=== PATIENT | female | born 1975 | race Caucasian/White ===

== ENCOUNTER 2018-02-13 00:11 | Emergency (ER) | payer OTHER ==
[2018-02-13 00:38] VITALS: BMI 30.7
--- NOTE | 2018-02-13 00:48 | PDOC ---
History of Present Illness - General Chief Complaint: Pain, Acute Stated Complaint: RIGHT LEG PAIN Time Seen by Provider: 02/13/18 00:22 - History of Present Illness Initial Comments: The patient is a 43F who presents for evaluation of 5d of worsening RLE redness , swelling, and warmth over the anterior tibia. She cannot recall any trauma, laceration, cut, abrasion, or injury to her leg prior to her symptoms. She denies having had this before. She denies recent outdoor activity or travel. She denies having any other area of similar symptoms on her body. Denies fevers/chills, recent illness, vision changes, chest pain, SOB, abdominal pain, N/V/C/D, or changes in sensation 02/13/18 01:19 Past History - Past Medical History Allergies/Adverse Reactions: Allergies Allergy/AdvReac Type Severity Reaction Status Date / Time iodine [Iodine] Allergy Verified 02/13/18 00:36 povidone-iodine Allergy Verified 02/13/18 00:36 [Povidone-Iodine] Shellfish Allergy "SKIN RASH" Verified 02/13/18 00:36 Home Medications: Ambulatory Orders Clonazepam [Klonopin] 2 mg PO BID 11/10/14 Gabapentin [Neurontin] 300 mg PO TID 11/10/14 Thyroid,Pork [[place] Thyroid] 25 mg PO DAILY 11/10/14 Venlafaxine HCl ER [Effexor Xr -] 225 mg PO DAILY 11/10/14 Cyclobenzaprine HCl [Flexeril -] 10 mg PO PRN 12/13/14 Docusate Sodium [Colace -] 100 mg PO TID 12/13/14 Morphine (Avinza) [Avinza] 30 mg PO BID 12/13/14 Omeprazole [Prilosec (RX)] 40 mg PO DAILY 12/13/14 Oxycodone HCl/Acetaminophen [Percocet 5-325 mg Tablet] 1 - 2 tab PO Q4HWA Zolpidem Tartrate [Ambien] 10 mg PO 02/08/15 Meclizine HCl 25 mg PO QID #30 tablet 02/09/15 Levothyroxine [Synthroid -] 25 mcg PO DAILY 07/18/15 Topiramate [Topamax] 50 mg PO BID 07/18/15 Amox-Tr/K Cl [Augmentin - 875Mg Tablet] 1 tab PO BID #14 tablet 01/01/16 Cariprazine HCl [Vraylar] 4.5 mg PO 02/13/18 Cephalexin Monohydrate [Keflex -] 500 mg PO Q6H 7 Days #28 capsule 02/13/18 Cyclobenzaprine HCl [Flexeril 10 mg] 10 mg PO BID PRN 02/13/18 Docusate Sodium [Colace] 100 mg PO 02/13/18 Loratadine [Alavert] 10 mg PO 02/13/18 Meloxicam 15 mg PO 02/13/18 Thyroid [[place] Thyroid] 30 mg PO DAILY 02/13/18 Topiramate [Topamax] 50 mg PO 02/13/18 Anemia: No Asthma: (HOSPITALIZED FOR BRONCHITIS/PNEUMONIA 02/13) Cancer: No Cardiac Disorders: No CVA: No COPD: No CHF: No Dementia: No Diabetes: No GI Disorders: Yes (GERD, gallstones) Disorders: No HTN: No Hypercholesterolemia: No Liver Disease: No Psychiatric Problems: Yes (anxiety) Seizures: No Thyroid Disease: No - Surgical History Abdominal Surgery: Yes (GASTRIC SLEEVE) Appendectomy: No Cardiac Surgery: No Cholecystectomy: No Lung Surgery: No Neurologic Surgery: No Orthopedic Surgery: Yes (CARPAL TUNNEL RT HAND) - Immunization History Immunization Up to Date: Yes - Suicide/Smoking/Psychosocial Hx Smoking Status: No Smoking History: Never smoked Have you smoked in the past 12 months: No Number of Cigarettes Smoked Daily: 10 If you are a former smoker, when did you quit?: 7 months Cigars Per Day: 0 Information on smoking cessation initiated: No 'Breaking Loose' booklet given: 08/13/12 Hx Alcohol Use: No Drug/Substance Use Hx: No Substance Use Type: Alcohol Hx Substance Use Treatment: No Review of Systems - Review of Systems Able to Perform ROS?: Yes Comments:: GENERAL/CONSTITUTIONAL: No fever or chills. No weakness HEAD, EYES, EARS, NOSE AND THROAT: No change in vision. No ear pain or discharge. No sore throat CARDIOVASCULAR: No chest pain or shortness of breath RESPIRATORY: Denies cough, hemoptysis GASTROINTESTINAL: No nausea, vomiting, diarrhea or constipation GENITOURINARY: No dysuria, frequency, or change in urination MUSCULOSKELETAL: No joint or muscle swelling or pain. No neck or back pain SKIN: per HPI NEUROLOGIC: No vertigo, loss of consciousness, or change in strength/sensation ENDOCRINE: No increased thirst. No abnormal weight change HEMATOLOGIC/LYMPHATIC: No anemia, easy bleeding, or history of blood clots. ALLERGIC/IMMUNOLOGIC: No hives or skin allergy 02/13/18 00:51 Is the patient limited Malay proficient: No *Physical Exam - Vital Signs Last Vital Signs Temp Pulse Resp BP Pulse Ox 98.6 F 98 H 18 120/91 100 02/13/18 00:36 12 00:36 12 00:36 12 00:36 02/13/18 00:36 - Physical Exam Comments: GENERAL: Awake, alert, and fully oriented, in no acute distress HEAD: No signs of trauma, normocephalic, atraumatic EYES: PERRLA, EOMI, sclera anicteric, conjunctiva clear ENT: Hearing grossly normal, nares patent, oropharynx clear without exudates. Moist mucosa LUNGS: No distress, speaks full sentences, clear to auscultation bilaterally HEART: Regular rate and rhythm, normal S1 and S2, no murmurs appreciated, peripheral pulses normal and equal bilaterally ABDOMEN: Soft, nontender, normoactive bowel sounds. No guarding, no rebound. No masses EXTREMITIES : RLE anterior tibial erythema, warmth, and mild swelling compared to LLE. No underlying fluctuance, no obvious abrasion or break in skin. No wound. Otherwise, normal range of motion, no edema. No clubbing or cyanosis NEUROLOGICAL: Cranial nerves II through XII grossly intact. Normal speech, normal gait, no focal sensorimotor deficits 02/13/18 00:53 Moderate Sedation - Procedure Monitoring Vital Signs: Procedure Monitoring Vital Signs Temperature 98.6 F 02/13/18 00:36 Pulse Rate 98 H 02/13/18 00:36 Respiratory Rate 18 02/13/18 00:36 Blood Pressure 120/91 02/13/18 00:36 O2 Sat by Pulse Oximetry (%) 100 02/13/18 00:36 Medical Decision Making - Medical Decision Making The patient is a 43F w/ a history of hypothyroidism and RYGB who presents for evaluation of RLE anterior tibial cellulitis for 5d ED Course Rx for Keflex for 7d Discharge instructions and return precautions given Skin marked with current area of erythema and patient instructed to take a picture of it to be able to observe for change Plan for D/C w/ PCP f/u Patient in agreement and verbalized understanding Dispo: home 02/13/18 01:29 *DC/Admit/Observation/Transfer Diagnosis at time of Disposition: Cellulitis Qualifiers: Site of cellulitis: extremity Site of cellulitis of extremity: lower extremity Laterality: right Qualified Code(s): L03.115 - Cellulitis of right lower limb - Discharge Dispostion Disposition: HOME Condition at time of disposition: Stable Decision to Admit order: No - Prescriptions Prescriptions: Cephalexin Monohydrate [Keflex -] 500 mg PO Q6H 7 Days #28 capsule - Referrals Referrals: Jean Marie Jj MD [Primary Care Provider] - - Patient Instructions Printed Discharge Instructions: DI for Cellulitis -- Adult - Post Discharge Activity
--- NOTE | 2018-02-13 00:57 | PDOC ---
Attending Attestation - HPI HPI: 02/13/18 00:57 The patient is a 43 year old with a past medical history of morbid obesity here today for evaluation of right leg redness. The patient reports that her leg redness began one week ago, is localized to the anterior of the right leg, and notes associated pain, warmth, and swelling. She reports using topical ointments which provided no relief. Patient denies headache, lightheadedness. Denies fever, chills. Denies chest pain, shortness of breath. Denies nausea, vomiting, diarrhea, abdominal pain. Allergies: iodine, povidone-iodine, shellfish PCP: Jean Marie Jj - Physicial Exam PE: 02/13/18 00:57 GENERAL: Well developed, well nourished. Awake and alert. No acute distress. HEENT: Normocephalic, atraumatic. PERRLA, EOMI. No conjunctival pallor. Sclera are non- icteric. Moist mucous membranes. Oropharynx is clear. NECK: Supple. Full ROM. No JVD. Carotid pulses 2+ and symmetric, without bruits. No thyromegaly. No lymphadenopathy. CARDIOVASCULAR: Regular rate and rhythm. No murmurs, rubs, or gallops. Distal pulses are 2+ and symmetric. PULMONARY: No evidence of respiratory distress. Lungs clear to auscultation bilaterally. No wheezing, rales or rhonchi. ABDOMINAL: Soft. Non-tender. Non-distended. No rebound or guarding. No organomegaly. Normoactive bowel sounds. MUSCULOSKELETAL Normal range of motion at all joints. No bony deformities or tenderness. No CVA tenderness. EXTREMITIES: +mild erythema anterior cardoza right leg. No fluctuance, no vesicles, no drainage. No cyanosis. No clubbing. No edema. No calf tenderness. SKIN: Warm and dry. Normal capillary refill. No rashes. No jaundice. NEUROLOGICAL: Alert, awake, appropriate. Cranial nerves 2-12 intact. No deficits to light touch and temperature in face, upper extremities and lower extremities. No motor deficits in the in face, upper extremities and lower extremities. Normoreflexic in the upper and lower extremities. Normal speech. Toes are down- going bilaterally. Gait is normal without ataxia. PSYCHIATRIC: Cooperative. Good eye contact. Appropriate mood and affect. <Levon Perez - Last Filed: 02/13/18 00:57> - Resident Resident Name: Maurisio Fung - ED Attending Attestation I have performed the following: I have examined & evaluated the patient, The case was reviewed & discussed with the resident, I agree w/resident's findings & plan, Exceptions are as noted - HPI HPI: 02/13/18 00:56 43 yo female p/w complaint of a mild area of erythema on the cardoza of her right leg. No trauma - Medical Decision Making 02/13/18 01:07 -the area of erythema on her rt anterior cardoza is very small and mild . No appreciable swelling,no induration,no streaking She is ambulating with no difficulty - possibly early cellulitis and was placed on keflex and told to follow up with her PCP <Yamile Garcia - Last Filed: 02/13/18 01:10>
[2018-02-13 01:12] VITALS: BP 115/81; PULSE 88; TEMP 98.1
== END 2018-02-13 01:33 | disposition home or self-care (01) ==
LOC: JER 00:11
DX: L03.115 Cellulitis of right lower limb (principal); E03.9 Hypothyroidism, unspecified; Z98.84 Bariatric surgery status
CPT/HCPCS: 99281-25

== ENCOUNTER 2018-11-17 20:31 | Emergency (ER) | payer OTHER ==
[2018-11-17 20:44] VITALS: BMI 42.4
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
[2018-11-17] MEDS ORDERED: TIZANIDINE HCL 2 MG TABLET PO ONE (23:16)
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
[2018-11-18 01:35] VITALS: BP 98/60; PULSE 82; TEMP 98.2
== END 2018-11-18 01:43 | disposition home or self-care (01) ==
LOC: JERFT 20:31 → JER 20:31
DX: M54.5 Low back pain (principal); V53.5XXA Driver of pick-up truck or van injured in collision with car, pick-up truck or van in traffic accident, initial encounter; Y92.414 Local residential or business street as the place of occurrence of the external cause; Y93.89 Activity, other specified; Y99.8 Other external cause status; E03.9 Hypothyroidism, unspecified; F41.9 Anxiety disorder, unspecified; F32.9 Major depressive disorder, single episode, unspecified; E66.01 Morbid (severe) obesity due to excess calories; Z68.41 Body mass index [BMI] 40.0-44.9, adult
CPT/HCPCS: 72100-TC-FY; 99282-25

== ENCOUNTER 2023-01-10 21:12 | Emergency (ER) | payer OTHER ==
[2023-01-10 21:19] VITALS: BP 118/80; PULSE 95; RESP 20; TEMP 98.1; BMI 43.2
[2023-01-10] MEDS ORDERED: ALBUTEROL SO4 2.5/IPRATROPIUM 0.5 INH SOL 3 ML VIAL.NEB. NEB ONE ×2 (21:30→21:36)
[2023-01-10] MEDS ORDERED: DEXTROMETHORPHAN/PROMETHAZINE 15 MG/6.25 MG/5 ML SYRUP PO ONE (22:26)
== END 2023-01-10 23:01 | disposition home or self-care (01) ==
LOC: JERFT 21:12
PROC: 3E0F7GC Introduction of Other Therapeutic Substance into Respiratory Tract, Via Natural or Artificial Opening (ICD-10-PCS; principal; 2023-01-10)
DX: S93.422A Sprain of deltoid ligament of left ankle, initial encounter (principal); J01.90 Acute sinusitis, unspecified; B97.89 Other viral agents as the cause of diseases classified elsewhere; R05.1 Acute cough; F17.210 Nicotine dependence, cigarettes, uncomplicated; Z20.822 Contact with and (suspected) exposure to COVID-19
CPT/HCPCS: 0241U-QW; 71046-TC-FY; 73610-TC-LT-FY; 73630-TC-LT; 94640; 99284-25

== ENCOUNTER 2023-03-16 02:59 | Emergency (ER) | payer OTHER ==
[2023-03-16 03:08] VITALS: BP 156/76; PULSE 101; RESP 20; TEMP 97.9; BMI 43.2
[2023-03-16] MEDS ORDERED: FAMOTIDINE 20 MG/50 ML IVPB 20 MG/50 ML MG IVPB ONE ×2 (03:37→03:58)
[2023-03-16] MEDS ORDERED: ACETAMINOPHEN 1000 MG/100 ML BAG IVPB ONE (03:37)
[2023-03-16] MEDS ORDERED: ACETAMINOPHEN INJECTION 100 ML IVPB ONE (03:58)
[2023-03-16 04:02] LABS: BASO % 0.6 % (0-2.0); EOS % 0.9 % (0-4.5); HEMATOCRIT 47.7 % (32.4-45.2); HEMOGLOBIN 16.1 GM/dL (10.7-15.3); LYMPH % 19.7 % (8-40); MCHC 33.7 g/dl (32.0-36.0); MEAN CELL VOLUME 89.1 fl (80-96); MEAN PLT VOLUME 8.5 fl (7.5-11.1); MONO % 12.1 % (3.8-10.2); NEUT % 66.7 % (42.8-82.8); PLATELET COUNT 299 10^3/uL (134-434); RBC 5.36 M/mm3 (3.60-5.2); WHITE BLOOD COUNT 12.1 K/mm3 (4.0-10.0)
[2023-03-16 04:03] LABS: PH,URINE 5.5 (5.0-8.0); URINE APPEARANCE CLEAR; URINE BILIRUBIN NEGATIVE (NEGATIVE); URINE COLOR YELLOW; URINE GLUCOSE (UA) NEGATIVE (NEGATIVE); URINE KETONE NEGATIVE (NEGATIVE); URINE LEUK ESTERASE NEGATIVE (NEGATIVE); URINE NITRITE NEGATIVE (NEGATIVE); URINE PROTEIN NEGATIVE (NEGATIVE); URINE UROBILINOGEN 0.2 mg/dL (0.2-1.0)
[2023-03-16 04:06] LABS: HCG,QUALITATIVE URINE Negative
[2023-03-16 04:19] LABS: INR 1.03 (0.83-1.09); PROTHROMBIN TIME (PATIENT) 11.9 SEC (9.7-13.0)
[2023-03-16 04:21] LABS: ACTIVATED PTT 35.6 SECONDS (25.2-36.5); POTASSIUM 4.2 mmol/L (3.5-5.1)
[2023-03-16 04:24] LABS: ALBUMIN 3.7 g/dl (3.4-5.0); BLOOD UREA NITROGEN 7.9 mg/dL (7-18); CALCIUM 9.5 mg/dL (8.5-10.1)
[2023-03-16 04:27] LABS: CREATININE 0.7 mg/dL (0.55-1.3)
[2023-03-16 04:29] LABS: BILIRUBIN,TOTAL 0.4 mg/dL (0.2-1); TOT PROT 7.6 g/dl (6.4-8.2)
[2023-03-16] MEDS ORDERED: morphine CARPU-JECT 4 MG/1 ML DISP.SYRIN IVPUSH ONE (05:44)
[2023-03-16] MEDS ORDERED: ONDANSETRON 4 MG/2 ML VIAL IVPUSH ONE (05:44)
[2023-03-16] MEDS ORDERED: morphine SULFATE 4 MG/ML VIAL ONE (05:54)
[2023-03-16] MEDS ORDERED: ONDANSETRON 4 MG/2 ML VIAL ONE (05:55)
[2023-03-16] MEDS ORDERED: AMOX TR/POT CLAV 875MG/125MG TABLETS (FP) ONE (07:16)
[2023-03-16] MEDS ORDERED: AMOX TR/POT CLAV 875MG/125MG TABLETS (FP) PO ONE (07:22)
== END 2023-03-16 07:08 | disposition home or self-care (01) ==
LOC: JER 02:59
PROC: 3E033GC Introduction of Other Therapeutic Substance into Peripheral Vein, Percutaneous Approach (ICD-10-PCS; principal; 2023-03-16)
PROC: 3E033GC Introduction of Other Therapeutic Substance into Peripheral Vein, Percutaneous Approach (ICD-10-PCS; 2023-03-16)
PROC: 3E033GC Introduction of Other Therapeutic Substance into Peripheral Vein, Percutaneous Approach (ICD-10-PCS; 2023-03-16)
PROC: 3E033NZ Introduction of Analgesics, Hypnotics, Sedatives into Peripheral Vein, Percutaneous Approach (ICD-10-PCS; 2023-03-16)
DX: K57.92 Diverticulitis of intestine, part unspecified, without perforation or abscess without bleeding (principal); K52.9 Noninfective gastroenteritis and colitis, unspecified; R10.32 Left lower quadrant pain; R10.814 Left lower quadrant abdominal tenderness
CPT/HCPCS: 36415; 74176-TC; 80053; 81003; 83605; 83690; 84484; 84703; 85025; 85610; 85730; 87086; 93005; 93010; 99285-25

== ENCOUNTER 2023-05-07 10:05 | Inpatient (IN) | payer OTHER ==
[2023-05-07] MEDS ORDERED: morphine SULFATE 4 MG/ML VIAL ONE (10:53)
[2023-05-07] MEDS ORDERED: ONDANSETRON 4 MG/2 ML VIAL ONE (10:58)
[2023-05-07] MEDS ORDERED: ONDANSETRON *ODT* 4 MG TABLET SL PRN (11:15)
[2023-05-07] MEDS ORDERED: clonazePAM 2 MG TABLET PO PRN (11:17)
[2023-05-07 11:19] LABS: BASO % 0.6 % (0-2.0); HEMATOCRIT 41.3 % (32.4-45.2); HEMOGLOBIN 14.1 GM/dL (10.7-15.3); LYMPH % 15.4 % (8-40); MCH 30.7 pg (25.7-33.7); MCHC 34.1 g/dl (32.0-36.0); MEAN CELL VOLUME 89.8 fl (80-96); MEAN PLT VOLUME 8.5 fl (7.5-11.1); PLATELET COUNT 275 10^3/uL (134-434); RDW 13.5 % (11.6-15.6)
[2023-05-07] MEDS: morphine CARPU-JECT 4 MG/1 ML DISP.SYRIN IVPUSH ONE (11:30)
[2023-05-07] MEDS: ONDANSETRON 4 MG/2 ML VIAL IVPUSH ONE (11:31)
[2023-05-07 11:34] LABS: POTASSIUM 4.3 mmol/L (3.5-5.1)
[2023-05-07 11:37] LABS: INR 1.03 (0.83-1.09); PROTHROMBIN TIME (PATIENT) 11.9 SEC (9.7-13.0)
[2023-05-07 11:38] LABS: CALCIUM 9.1 mg/dL (8.5-10.1)
[2023-05-07 11:39] LABS: ACTIVATED PTT 33.9 SECONDS (25.2-36.5); ALBUMIN 3.1 g/dl (3.4-5.0); BLOOD UREA NITROGEN 7.3 mg/dL (7-18)
[2023-05-07 11:42] LABS: CREATININE 0.6 mg/dL (0.55-1.3)
[2023-05-07 11:43] LABS: TOT PROT 6.7 g/dl (6.4-8.2)
[2023-05-07 11:44] LABS: BILIRUBIN,TOTAL 0.6 mg/dL (0.2-1)
[2023-05-07] MEDS ORDERED: PIPERACILLIN/TAZOB 4.5 GM 4.5 GM/100 ML BAG IVPB ONE (11:54)
[2023-05-07] MEDS: PIPERACILLIN/TAZOB 4.5 GM 4.5 GM in DEXTROSE 5%-WATER 100 ML IVPB ONE (12:06)
[2023-05-07] MEDS: DEXTROSE 5%-NORMAL SALINE 1,000 ML IV SCH (12:06)
[2023-05-07 12:25] LABS: ERYTHROCYTE SEDIMENTATION RATE 44 mm/hr (0-20)
[2023-05-07] MEDS ORDERED: ACETAMINOPHEN 325 MG TABLET (FP) ONE (12:54)
[2023-05-07] MEDS: ACETAMINOPHEN 325 MG TABLET (FP) PO PRN (13:05)
[2023-05-07] MEDS: traMADol HCL 50 MG TABLET PO PRN (16:33)
[2023-05-07 17:47] VITALS: BMI 43.4
[2023-05-07] MEDS: morphine SULFATE 4 MG/ML VIAL IM PRN (18:37)
[2023-05-07] MEDS: traZODone HCL 50 MG TABLET (FP) PO SCH (22:09)
[2023-05-07] MEDS: TOPIRAMATE 25 MG TABLET PO SCH (22:09)
[2023-05-07] MEDS: HEPARIN NA (PORCINE) 5,000 UNITS/ML 1ML VIAL SQ SCH (22:09)
[2023-05-08] MEDS: morphine SULFATE 4 MG/ML VIAL IVPB PRN (01:30)
[2023-05-08] MEDS: LEVOTHYROXINE NA 25 MCG TABLET (FP) PO SCH (06:09)
[2023-05-08 08:32] LABS: HEMATOCRIT 37.3 % (32.4-45.2); HEMOGLOBIN 13.2 GM/dL (10.7-15.3); MCH 31.4 pg (25.7-33.7); MCHC 35.4 g/dl (32.0-36.0); MEAN CELL VOLUME 88.8 fl (80-96); PLATELET COUNT 259 10^3/uL (134-434); RDW 13.3 % (11.6-15.6); WHITE BLOOD COUNT 8.9 K/mm3 (4.0-10.0)
[2023-05-08 08:38] LABS: POTASSIUM 3.9 mmol/L (3.5-5.1)
[2023-05-08 08:41] LABS: CALCIUM 8.5 mg/dL (8.5-10.1)
[2023-05-08 08:42] LABS: ALBUMIN 2.7 g/dl (3.4-5.0)
[2023-05-08 08:44] LABS: CREATININE 0.6 mg/dL (0.55-1.3)
[2023-05-08 08:46] LABS: BILIRUBIN,TOTAL 0.8 mg/dL (0.2-1); TOT PROT 6.1 g/dl (6.4-8.2)
[2023-05-08] MEDS: PANTOPRAZOLE 40 MG TABLET PO SCH (09:15)
[2023-05-08] MEDS: CEFTRIAXONE 1 GM in DEXTROSE 5%-WATER - 50 ML IVPB SCH (12:09)
[2023-05-09] MEDS: DOCUSATE SODIUM 100 MG CAPSULE (FP) PO PRN (00:58)
[2023-05-09 10:00] LABS: HEMATOCRIT 37.5 % (32.4-45.2); HEMOGLOBIN 13.1 GM/dL (10.7-15.3); MEAN CELL VOLUME 88.7 fl (80-96); MEAN PLT VOLUME 8.6 fl (7.5-11.1); PLATELET COUNT 257 10^3/uL (134-434); RBC 4.23 M/mm3 (3.60-5.2); RDW 13.4 % (11.6-15.6); WHITE BLOOD COUNT 7.6 K/mm3 (4.0-10.0)
[2023-05-09] MEDS: BISACODYL 5 MG TABLET.DR (FP) PO SCH (10:19)
[2023-05-09 10:30] LABS: POTASSIUM 3.7 mmol/L (3.5-5.1)
[2023-05-09 11:17] LABS: CREATININE 0.5 mg/dL (0.55-1.3)
[2023-05-09 11:19] LABS: BILIRUBIN,TOTAL 0.6 mg/dL (0.2-1); TOT PROT 6.1 g/dl (6.4-8.2)
[2023-05-09 11:24] LABS: CALCIUM 8.8 mg/dL (8.5-10.1)
[2023-05-09 11:25] LABS: ALBUMIN 2.6 g/dl (3.4-5.0); BLOOD UREA NITROGEN 6.7 mg/dL (7-18)
[2023-05-10 08:30] LABS: HEMATOCRIT 39.1 % (32.4-45.2); HEMOGLOBIN 13.3 GM/dL (10.7-15.3); MCH 30.4 pg (25.7-33.7); MCHC 34.1 g/dl (32.0-36.0); MEAN CELL VOLUME 89.3 fl (80-96); MEAN PLT VOLUME 9.3 fl (7.5-11.1); PLATELET COUNT 281 10^3/uL (134-434); RBC 4.38 M/mm3 (3.60-5.2); RDW 13.6 % (11.6-15.6); WHITE BLOOD COUNT 6.9 K/mm3 (4.0-10.0)
[2023-05-10 09:31] LABS: POTASSIUM 3.8 mmol/L (3.5-5.1)
[2023-05-10 09:36] LABS: ALBUMIN 2.8 g/dl (3.4-5.0); BLOOD UREA NITROGEN 7.1 mg/dL (7-18)
[2023-05-10 09:39] LABS: CREATININE 0.6 mg/dL (0.55-1.3)
[2023-05-10 09:41] LABS: BILIRUBIN,TOTAL 0.4 mg/dL (0.2-1); TOT PROT 6.3 g/dl (6.4-8.2)
[2023-05-11 02:52] VITALS: RESP 18
[2023-05-11 10:56] VITALS: BP 113/69; PULSE 68; TEMP 97.8
== END 2023-05-11 14:44 | disposition home or self-care (01) | DRG 244 ==
LOC: JER 10:05 → JERBED 11:26 → J6S 16:09 → OBSVTOIN 05-09 10:15
PROVIDERS: ADMIT Family Medicine; ATTEND Family Medicine
DX: K57.92 Diverticulitis of intestine, part unspecified, without perforation or abscess without bleeding (principal); E03.9 Hypothyroidism, unspecified; F31.9 Bipolar disorder, unspecified; M79.7 Fibromyalgia; F41.8 Other specified anxiety disorders; G89.29 Other chronic pain; Z98.84 Bariatric surgery status; E66.01 Morbid (severe) obesity due to excess calories; Z68.41 Body mass index [BMI] 40.0-44.9, adult
CPT/HCPCS: 36415; 74177-TC; 80053; 81003; 84443; 84703; 85025; 85027; 85610; 85651; 85730; 86140; 86850; 86900; 86901; 87086; 99285-25; G0378; J0131; J1644

== ENCOUNTER 2023-11-18 03:38 | Inpatient (IN) | payer OTHER ==
[2023-11-18] MEDS ORDERED: ONDANSETRON 4 MG/2 ML VIAL ONE ×2 (04:52→12:00)
[2023-11-18] MEDS ORDERED: ACETAMINOPHEN INJECTION 100 ML ONE (04:52)
[2023-11-18 05:35] LABS: HIV INTERPRETATION NEGATIVE (NEGATIVE)
[2023-11-18] MEDS: ACETAMINOPHEN 1000 MG/100 ML BAG IVPB ONE (05:42)
[2023-11-18] MEDS: ONDANSETRON 4 MG/2 ML VIAL IVPUSH ONE ×2 (05:42→11:59)
[2023-11-18 05:44] LABS: BASO % 0.3 % (0-2.0); HEMATOCRIT 41.5 % (32.4-45.2); HEMOGLOBIN 14.1 GM/dL (10.7-15.3); LYMPH % 10.6 % (8-40); MCH 31.1 pg (25.7-33.7); MCHC 33.9 g/dl (32.0-36.0); MEAN CELL VOLUME 91.7 fl (80-96); MEAN PLT VOLUME 9.6 fl (7.5-11.1); MONO % 11.9 % (3.8-10.2); NEUT % 77.2 % (42.8-82.8); PLATELET COUNT 225 10^3/uL (134-434); RBC 4.52 M/mm3 (3.60-5.2); RDW 13.8 % (11.6-15.6); WHITE BLOOD COUNT 14.7 K/mm3 (4.0-10.0)
[2023-11-18 05:46] LABS: INR 1.03 (0.83-1.09); PROTHROMBIN TIME (PATIENT) 11.6 SEC (9.7-13.0)
[2023-11-18 05:48] LABS: ACTIVATED PTT 35.2 SECONDS (25.2-36.5)
[2023-11-18 05:51] LABS: PH,URINE 5.5 (5.0-8.0); URINE APPEARANCE CLEAR; URINE BILIRUBIN NEGATIVE (NEGATIVE); URINE COLOR YELLOW; URINE GLUCOSE (UA) NEGATIVE (NEGATIVE); URINE KETONE NEGATIVE (NEGATIVE); URINE LEUK ESTERASE NEGATIVE (NEGATIVE); URINE NITRITE NEGATIVE (NEGATIVE); URINE PROTEIN NEGATIVE (NEGATIVE); URINE UROBILINOGEN 0.2 mg/dL (0.2-1.0)
[2023-11-18 06:03] LABS: POTASSIUM 3.8 mmol/L (3.5-5.1)
[2023-11-18 06:05] LABS: ALBUMIN 3.5 g/dl (3.4-5.0); CALCIUM 9.2 mg/dL (8.5-10.1)
[2023-11-18 06:08] LABS: CREATININE 0.7 mg/dL (0.55-1.3)
[2023-11-18 06:10] LABS: TOT PROT 7.2 g/dl (6.4-8.2)
[2023-11-18] MEDS ORDERED: morphine SULFATE 4 MG/ML VIAL ONE (08:18)
[2023-11-18] MEDS: morphine SULFATE 4 MG/ML VIAL IVPUSH ONE (08:39)
[2023-11-18] MEDS: LACTATED RINGERS SOLUTION 1000 ML INFUS.BAG IV ONE ×2 (10:17→12:38)
[2023-11-18] MEDS: PIPERACILLIN/TAZOB 4.5 GM 4.5 GM in DEXTROSE 5%-WATER 100 ML IVPB ONE (13:09)
[2023-11-18] MEDS ORDERED: PIPERACILLIN/TAZOB 4.5 GM 4.5 GM/100 ML BAG IVPB ONE (13:10)
[2023-11-18 15:20] VITALS: BMI 39.5
[2023-11-18] MEDS: DEXTROSE 5%-NORMAL SALINE 1,000 ML IV SCH (18:18)
[2023-11-18] MEDS: ONDANSETRON 4 MG/2 ML VIAL IVPUSH PRN (18:24)
[2023-11-18] MEDS: KETOROLAC TROMETHAMINE 30 MG/1 ML VIAL IVPUSH PRN (18:24)
[2023-11-18] MEDS: ALBUTEROL SULFATE 0.021% (0.63 MG/3 ML) VIAL.NEB NEB SCH (21:22)
[2023-11-18] MEDS: PIPERACILLIN/TAZOB 4.5 GM 4.5 GM in DEXTROSE 5%-WATER 100 ML IVPB SCH (21:39)
[2023-11-18] MEDS: traZODone HCL 100 MG TABLET (FP) PO SCH (21:39)
[2023-11-18] MEDS: ACETAMINOPHEN 1000 MG/100 ML BAG IVPB PRN (22:41)
[2023-11-19] MEDS: LEVOTHYROXINE NA 25 MCG TABLET (FP) PO SCH (07:28)
[2023-11-19 08:31] LABS: HEMATOCRIT 36.9 % (32.4-45.2); HEMOGLOBIN 12.9 GM/dL (10.7-15.3); MCH 31.5 pg (25.7-33.7); MEAN CELL VOLUME 90.1 fl (80-96); MEAN PLT VOLUME 8.8 fl (7.5-11.1); PLATELET COUNT 174 10^3/uL (134-434); RBC 4.09 M/mm3 (3.60-5.2); RDW 13.6 % (11.6-15.6); WHITE BLOOD COUNT 5.7 K/mm3 (4.0-10.0)
[2023-11-19 08:59] LABS: POTASSIUM 3.7 mmol/L (3.5-5.1)
[2023-11-19 09:02] LABS: BLOOD UREA NITROGEN 7.5 mg/dL (7-18); CALCIUM 8.5 mg/dL (8.5-10.1)
[2023-11-19 09:04] LABS: ALBUMIN 2.6 g/dl (3.4-5.0)
[2023-11-19 09:05] LABS: CREATININE 0.7 mg/dL (0.55-1.3)
[2023-11-19 09:07] LABS: BILIRUBIN,TOTAL 0.7 mg/dL (0.2-1); TOT PROT 5.7 g/dl (6.4-8.2)
[2023-11-19] MEDS: PANTOPRAZOLE SODIUM 40 MG VIAL IVPUSH SCH (09:56)
[2023-11-19] MEDS: HYDROmorphone HCL CARPU-JECT 2 MG/1 ML DISP.SYRIN IVPB STA (15:22)
[2023-11-19] MEDS: clonazePAM 2 MG TABLET PO PRN (20:44)
[2023-11-19 21:05] LABS: MAGNESIUM 1.9 mg/dL (1.8-2.4)
[2023-11-19 21:09] LABS: PHOSPHOROUS 3.4 mg/dL (2.5-4.9)
[2023-11-19] MEDS: HYDROmorphone HCL CARPU-JECT 2 MG/1 ML DISP.SYRIN IVPB ONE (21:45)
[2023-11-20] MEDS: ACETAMINOPHEN 1000 MG/100 ML BAG IVPB ONE (02:00)
[2023-11-20 08:37] LABS: HEMATOCRIT 36.9 % (32.4-45.2); HEMOGLOBIN 12.5 GM/dL (10.7-15.3); MCHC 33.8 g/dl (32.0-36.0); MEAN CELL VOLUME 91.5 fl (80-96); MEAN PLT VOLUME 9.4 fl (7.5-11.1); PLATELET COUNT 205 10^3/uL (134-434); RBC 4.03 M/mm3 (3.60-5.2); RDW 13.4 % (11.6-15.6); WHITE BLOOD COUNT 7.7 K/mm3 (4.0-10.0)
[2023-11-20 08:51] LABS: POTASSIUM 3.6 mmol/L (3.5-5.1)
[2023-11-20 08:53] LABS: CALCIUM 8.3 mg/dL (8.5-10.1)
[2023-11-20 08:54] LABS: ALBUMIN 2.4 g/dl (3.4-5.0); BLOOD UREA NITROGEN 4.5 mg/dL (7-18)
[2023-11-20 08:57] LABS: CREATININE 0.7 mg/dL (0.55-1.3)
[2023-11-20 08:58] LABS: BILIRUBIN,TOTAL 0.6 mg/dL (0.2-1); TOT PROT 5.7 g/dl (6.4-8.2)
[2023-11-20] MEDS: morphine SULFATE 4 MG/ML VIAL IVPUSH PRN (10:54)
[2023-11-20] MEDS: DEXTROSE 5%-NORMAL SALINE 1,000 ML IV SCH (14:02)
[2023-11-20] MEDS: ACETAMINOPHEN 1000 MG/100 ML BAG IVPB SCH (14:03)
[2023-11-20] MEDS: KETOROLAC TROMETHAMINE 30 MG/1 ML VIAL IVPUSH SCH (18:07)
[2023-11-21 10:21] LABS: HEMATOCRIT 33.7 % (32.4-45.2); HEMOGLOBIN 11.6 GM/dL (10.7-15.3); MCH 31.1 pg (25.7-33.7); MCHC 34.5 g/dl (32.0-36.0); MEAN CELL VOLUME 90.2 fl (80-96); MEAN PLT VOLUME 9.4 fl (7.5-11.1); PLATELET COUNT 212 10^3/uL (134-434); RBC 3.74 M/mm3 (3.60-5.2); RDW 13.7 % (11.6-15.6); WHITE BLOOD COUNT 7.1 K/mm3 (4.0-10.0)
[2023-11-21 10:41] LABS: POTASSIUM 3.3 mmol/L (3.5-5.1)
[2023-11-21 10:51] LABS: BLOOD UREA NITROGEN 4.6 mg/dL (7-18)
[2023-11-21 10:54] LABS: CREATININE 0.5 mg/dL (0.55-1.3)
[2023-11-21 10:57] LABS: CALCIUM 8.2 mg/dL (8.5-10.1)
[2023-11-21 11:49] LABS: ANISOCYTOSIS 0; MACROCYTOSIS 0; ROULEAU 1+
[2023-11-21 11:51] LABS: PLATELET ESTIMATE ADEQUATE
[2023-11-21] MEDS: HEPARIN NA (PORCINE) 5,000 UNITS/ML 1ML VIAL SQ SCH (13:47)
[2023-11-21] MEDS: KCL 10 MEQ IVPB 10 MEQ/100 ML INFUS.BAG IVPB SCH (15:31)
[2023-11-21] MEDS: ONDANSETRON 4 MG/2 ML VIAL IVPB STA (17:03)
[2023-11-21] MEDS: POTASSIUM CHLORIDE 10 MEQ in DEXTROSE 5%-NORMAL SALINE 1,000 ML IV SCH (20:03)
[2023-11-21] MEDS: ONDANSETRON 4 MG/2 ML VIAL IVPUSH ONE (21:54)
[2023-11-22 08:30] LABS: BASO % 0.4 % (0-2.0); EOS % 0.9 % (0-4.5); HEMATOCRIT 33.6 % (32.4-45.2); HEMOGLOBIN 11.4 GM/dL (10.7-15.3); LYMPH % 16.7 % (8-40); MCH 30.8 pg (25.7-33.7); MEAN CELL VOLUME 90.6 fl (80-96); MEAN PLT VOLUME 9.4 fl (7.5-11.1); MONO % 16.8 % (3.8-10.2); NEUT % 65.2 % (42.8-82.8); PLATELET COUNT 208 10^3/uL (134-434); RBC 3.71 M/mm3 (3.60-5.2); RDW 13.4 % (11.6-15.6); WHITE BLOOD COUNT 5.9 K/mm3 (4.0-10.0)
[2023-11-22 08:53] LABS: CHLORIDE 110 mmol/L (98-107); SODIUM 141 mmol/L (136-145); SODIUM 142 mmol/L (136-145)
[2023-11-22 08:54] LABS: POTASSIUM 2.9 mmol/L (3.5-5.1)
[2023-11-22 08:55] LABS: ANION GAP 7 mmol/L (4-13); BLOOD UREA NITROGEN 5.9 mg/dL (7-18); CALCIUM 8.2 mg/dL (8.5-10.1); CO2 26 mmol/L (21-32); GLUCOSE,RANDOM 86 mg/dL (74-106)
[2023-11-22 08:56] LABS: ALBUMIN 2.1 g/dl (3.4-5.0); ANION GAP 7 mmol/L (4-13); CALCIUM 7.9 mg/dL (8.5-10.1); CO2 25 mmol/L (21-32)
[2023-11-22 08:57] LABS: BLOOD UREA NITROGEN 5.8 mg/dL (7-18); GLUCOSE,RANDOM 84 mg/dL (74-106); MAGNESIUM 1.8 mg/dL (1.8-2.4)
[2023-11-22 08:59] LABS: CREATININE 0.4 mg/dL (0.55-1.3)
[2023-11-22 09:00] LABS: CREATININE 0.5 mg/dL (0.55-1.3); SGOT/AST 19 U/L (15-37); SGPT/ALT 23 U/L (13-61)
[2023-11-22 09:01] LABS: BILIRUBIN,TOTAL 0.8 mg/dL (0.2-1); TOT PROT 5.2 g/dl (6.4-8.2)
[2023-11-22 09:02] LABS: ALK PHOS 65 U/L (45-117)
[2023-11-22] MEDS: POTASSIUM CHLORIDE TABS 10 MEQ TABLET.ER (FP) PO SCH (12:56)
[2023-11-22] MEDS: ACETAMINOPHEN 325 MG TABLET (FP) PO PRN (19:15)
[2023-11-22] MEDS: ONDANSETRON 4 MG/2 ML VIAL IVPUSH ONE ×2 (22:20→22:35)
[2023-11-22] MEDS ORDERED: ONDANSETRON 4 MG/2 ML VIAL IVPUSH PRN (23:46)
[2023-11-23 07:28] LABS: BASO % 0.6 % (0-2.0); EOS % 1.2 % (0-4.5); HEMATOCRIT 34.2 % (32.4-45.2); HEMOGLOBIN 11.7 GM/dL (10.7-15.3); LYMPH % 18.9 % (8-40); MCH 30.9 pg (25.7-33.7); MCHC 34.3 g/dl (32.0-36.0); MEAN CELL VOLUME 90.2 fl (80-96); MEAN PLT VOLUME 9.3 fl (7.5-11.1); MONO % 14.2 % (3.8-10.2); NEUT % 65.1 % (42.8-82.8); PLATELET COUNT 286 10^3/uL (134-434); RBC 3.79 M/mm3 (3.60-5.2); RDW 13.8 % (11.6-15.6); WHITE BLOOD COUNT 7.5 K/mm3 (4.0-10.0)
[2023-11-23 07:40] LABS: POTASSIUM 3.4 mmol/L (3.5-5.1)
[2023-11-23 07:47] LABS: BLOOD UREA NITROGEN 6.4 mg/dL (7-18)
[2023-11-23 07:48] LABS: CALCIUM 8.8 mg/dL (8.5-10.1)
[2023-11-23 07:49] LABS: CREATININE 0.6 mg/dL (0.55-1.3)
[2023-11-23] MEDS ORDERED: METOCLOPRAMIDE HCL INJECTION 10 MG/2 ML VIAL IVPUSH PRN (10:03)
[2023-11-23] MEDS: METOCLOPRAMIDE HCL INJECTION 10 MG/2 ML VIAL IVPB SCH (11:26)
[2023-11-23] MEDS: PHENOL 177 ML SPRAY BOTTLE MM PRN (14:06)
[2023-11-23] MEDS: ONDANSETRON *ODT* 4 MG TABLET SL PRN (21:06)
[2023-11-23] MEDS: KETOROLAC TROMETHAMINE 30 MG/1 ML VIAL IVPUSH PRN (21:14)
[2023-11-23 22:12] VITALS: RESP 18
[2023-11-23] MEDS: BENZOCAINE/MENTHOL (CHLORASEPTIC ) LOZENGE MM PRN (22:14)
[2023-11-24 09:48] LABS: HEMOGLOBIN 11.4 GM/dL (10.7-15.3); MCH 30.5 pg (25.7-33.7); MCHC 33.5 g/dl (32.0-36.0); MEAN CELL VOLUME 90.9 fl (80-96); MEAN PLT VOLUME 9.4 fl (7.5-11.1); PLATELET COUNT 317 10^3/uL (134-434); RBC 3.74 M/mm3 (3.60-5.2); RDW 13.7 % (11.6-15.6); WHITE BLOOD COUNT 7.9 K/mm3 (4.0-10.0)
[2023-11-24 10:10] LABS: ALBUMIN 2.3 g/dl (3.4-5.0); BLOOD UREA NITROGEN 7.9 mg/dL (7-18); CALCIUM 8.7 mg/dL (8.5-10.1)
[2023-11-24 10:14] LABS: CREATININE 0.5 mg/dL (0.55-1.3)
[2023-11-24 10:15] LABS: BILIRUBIN,TOTAL 0.5 mg/dL (0.2-1); TOT PROT 5.6 g/dl (6.4-8.2)
[2023-11-24 10:45] VITALS: BP 129/78; PULSE 61; TEMP 98.5
== END 2023-11-24 11:43 | disposition home or self-care (01) | DRG 244 ==
LOC: JER 03:38 → JERBED 12:27 → J7W 15:11 → OBSVTOIN 17:16
PROVIDERS: ADMIT Family Medicine; ATTEND Family Medicine
DX: K57.32 Diverticulitis of large intestine without perforation or abscess without bleeding (principal); E03.9 Hypothyroidism, unspecified; F31.9 Bipolar disorder, unspecified; M79.7 Fibromyalgia; Z98.84 Bariatric surgery status; E66.9 Obesity, unspecified; Z68.39 Body mass index [BMI] 39.0-39.9, adult; K21.9 Gastro-esophageal reflux disease without esophagitis
CPT/HCPCS: 36415; 71045-TC-FY; 71046-TC-FY; 74176-TC; 74177-TC; 74240-TC-FY; 76705-TC; 80048; 80053; 81003; 83036; 83605; 83690; 83735; 84100; 84439; 84443; 84484; 84703; 85025; 85027; 85610; 85651; 85730; 86140; 86803; 86850; 86900; 86901; 87040; 87086; 87389; 93005; 93010; 94010; 94640; 99285-25; G0378; J0131; J1644; Q0162

== ENCOUNTER 2023-12-18 04:32 | Inpatient (IN) | payer OTHER ==
[2023-12-13 13:45] VITALS: BMI 37.4
[2023-12-18] MEDS: ACETAMINOPHEN 500 MG TABLET (FP) PO ONE (08:50)
[2023-12-18] MEDS: GABAPENTIN 300 MG CAPSULE PO ONE (08:54)
[2023-12-18] MEDS ORDERED: PROPOFOL 20 ML ONE ×2 (09:40→15:58)
[2023-12-18] MEDS ORDERED: MIDAZOLAM HCL 2 MG/2 ML SINGLE DOSE VIAL ONE (09:40)
[2023-12-18] MEDS ORDERED: ROCURONIUM BROMIDE 50 MG/5 ML SYRINGE ONE (09:40)
[2023-12-18] MEDS ORDERED: LIDOCAINE HCL/PF 2% SDV 5ML VIAL ONE (09:42)
[2023-12-18] MEDS: cefOXitin SODIUM 2 GM VIAL (RESTRICTED TO ID) IVPB ONE ×2 (10:43→18:07)
[2023-12-18] MEDS ORDERED: ONDANSETRON 4 MG/2 ML VIAL IVPUSH PRN ×2 (11:10→16:42)
[2023-12-18] MEDS: BUPIVACAINE HCL/PF 0.25% (2.5MG/ML) 10 ML VIAL IJ ONE (11:20)
[2023-12-18] MEDS ORDERED: BUPIVACAINE HCL/PF 0.25% (2.5MG/ML) 10 ML VIAL ONE (11:23)
[2023-12-18] MEDS ORDERED: TRANEXAMIC ACID 1000 MG/10 ML VIAL ONE (14:10)
[2023-12-18] MEDS ORDERED: ACETAMINOPHEN INJECTION 100 ML ONE (15:43)
[2023-12-18] MEDS ORDERED: oxyCODONE HCL 5 MG TABLET PO PRN ×3 (15:45→17:01)
[2023-12-18] MEDS ORDERED: DEXAMETHASONE SOD PHOSPHATE 4 MG/1 ML VIAL ONE (16:12)
[2023-12-18] MEDS ORDERED: ONDANSETRON 4 MG/2 ML VIAL ONE (16:12)
[2023-12-18] MEDS ORDERED: ALBUTEROL SO4 HFA INHALER IH ONE (16:17)
[2023-12-18] MEDS ORDERED: SUGAMMADEX SODIUM 200 MG/2 ML VIAL ONE (16:19)
[2023-12-18] MEDS ORDERED: morphine SULFATE 4 MG/ML VIAL IVPUSH PRN (16:55)
[2023-12-18] MEDS: SODIUM CHLORIDE 1,000 ML IV STA (18:26)
[2023-12-18] MEDS ORDERED: CEFOXITIN SODIUM 2 GM in DEXTROSE 5%-WATER - 100 ML IVPB SCH (18:45)
[2023-12-18] MEDS ORDERED: KETOROLAC TROMETHAMINE 30 MG/1 ML VIAL ONE (19:00)
[2023-12-18] MEDS: KETOROLAC TROMETHAMINE 15 MG/ML VIAL IVPUSH PRN (19:10)
[2023-12-18] MEDS ORDERED: HYDROmorphone HCL CARPU-JECT 2 MG/1 ML DISP.SYRIN ONE (19:26)
[2023-12-18] MEDS: HYDROmorphone HCl 2 MG/ML VIAL IVPUSH PRN (19:30)
[2023-12-18] MEDS: LACTATED RINGERS SOLUTION 1,000 ML IV SCH (19:59)
[2023-12-18] MEDS: CEFOXITIN SODIUM 2 GM in DEXTROSE 5%-WATER 100 ML IVPB SCH (21:40)
[2023-12-18] MEDS: ACETAMINOPHEN 1000 MG/100 ML BAG IVPB SCH (23:29)
[2023-12-18] MEDS: TRANEXAMIC ACID 1000 MG/10 ML VIAL IVPB SCH (23:50)
[2023-12-19] MEDS ORDERED: ALBUTEROL SO4 HFA INHALER IH PRN (01:11)
[2023-12-19] MEDS: ONDANSETRON 4 MG/2 ML VIAL IM PRN (06:36)
[2023-12-19] MEDS ORDERED: HYDROmorphone HCl 2 MG/ML VIAL IVPB PRN (07:53)
[2023-12-19] MEDS: SCOPOLAMINE HYDROBROMIDE 1 PATCH PATCH.TD72 TD ONE (07:56)
[2023-12-19] MEDS: LACTATED RINGERS SOLUTION 1,000 ML IV SCH ×2 (07:58)
[2023-12-19] MEDS ORDERED: oxyCODONE HCL 5 MG TABLET PO PRN (08:13)
[2023-12-19] MEDS: LACTATED RINGERS SOLUTION 1,000 ML/1,000 ML INFUS.BAG IV SCH (08:30)
[2023-12-19] MEDS: HYDROmorphone HCl 2 MG/ML VIAL IVPB PRN ×2 (08:42→16:56)
[2023-12-19 09:15] LABS: BASO % 0.3 % (0-2.0); EOS % 0.1 % (0-4.5); HEMATOCRIT 34.8 % (32.4-45.2); HEMOGLOBIN 11.9 GM/dL (10.7-15.3); LYMPH % 15.1 % (8-40); MCH 30.2 pg (25.7-33.7); MCHC 34.2 g/dl (32.0-36.0); MEAN CELL VOLUME 88.3 fl (80-96); MEAN PLT VOLUME 8.9 fl (7.5-11.1); MONO % 10.5 % (3.8-10.2); PLATELET COUNT 293 10^3/uL (134-434); RBC 3.94 M/mm3 (3.60-5.2); WHITE BLOOD COUNT 12.2 K/mm3 (4.0-10.0)
[2023-12-19] MEDS: THYROID 15 MG TABLET PO SCH (10:00)
[2023-12-19 10:02] LABS: BLOOD UREA NITROGEN 5.5 mg/dL (7-18); CALCIUM 8.7 mg/dL (8.5-10.1)
[2023-12-19 10:05] LABS: CREATININE 0.7 mg/dL (0.55-1.3)
[2023-12-19] MEDS: TOPIRAMATE 25 MG TABLET PO SCH (10:29)
[2023-12-19] MEDS: clonazePAM 0.5 MG TABLET PO SCH (10:29)
[2023-12-19] MEDS: GABAPENTIN 300 MG CAPSULE PO SCH (10:29)
[2023-12-19] MEDS: ENOXAPARIN NA (PORCINE) 40 MG/0.4 ML DISP.SYRIN SQ SCH (10:30)
[2023-12-19] MEDS: FLUTICASONE PROP 0.05% 16 GM NASAL SPRAY NS SCH (10:30)
[2023-12-19] MEDS: FAMOTIDINE 20 MG/50 ML IVPB 20 MG/50 ML MG IVPB SCH (10:31)
[2023-12-19] MEDS: THYROID 30 MG TABLET PO SCH (13:41)
[2023-12-19] MEDS: oxyCODONE HCL 5 MG TABLET PO PRN (16:14)
[2023-12-19] MEDS: ACETAMINOPHEN 500 MG TABLET (FP) PO SCH (17:04)
[2023-12-19] MEDS: METOCLOPRAMIDE HCL 10 MG TABLET (FP) PO SCH (17:04)
[2023-12-19] MEDS: KETOROLAC TROMETHAMINE 15 MG/ML VIAL IVPUSH SCH (21:03)
[2023-12-19] MEDS: traZODone HCL 100 MG TABLET (FP) PO SCH (21:11)
[2023-12-19] MEDS: oxyCODONE HCL 5 MG TABLET PO SCH (21:11)
[2023-12-19] MEDS ORDERED: PATIENT'S OWN MEDICATION (NON-FORMULARY) (Cariprazine Hcl [Vraylar] 4.5 MG Capsule) PO SCH (22:00)
[2023-12-20 09:50] LABS: BASO % 0.5 % (0-2.0); EOS % 2.2 % (0-4.5); HEMATOCRIT 32.7 % (32.4-45.2); HEMOGLOBIN 11.1 GM/dL (10.7-15.3); LYMPH % 11.4 % (8-40); MCH 30.5 pg (25.7-33.7); MCHC 33.8 g/dl (32.0-36.0); MEAN CELL VOLUME 90.1 fl (80-96); MEAN PLT VOLUME 9.2 fl (7.5-11.1); MONO % 12.7 % (3.8-10.2); NEUT % 73.2 % (42.8-82.8); PLATELET COUNT 237 10^3/uL (134-434); RBC 3.64 M/mm3 (3.60-5.2); RDW 14.5 % (11.6-15.6); WHITE BLOOD COUNT 12.7 K/mm3 (4.0-10.0)
[2023-12-20 10:14] LABS: POTASSIUM 3.8 mmol/L (3.5-5.1)
[2023-12-20 10:18] LABS: CALCIUM 8.5 mg/dL (8.5-10.1)
[2023-12-20 10:22] LABS: CREATININE 0.6 mg/dL (0.55-1.3)
[2023-12-20] MEDS: LACTATED RINGERS SOLUTION 1,000 ML IV SCH ×2 (19:29)
[2023-12-20] MEDS: ACETAMINOPHEN 500 MG TABLET (FP) PO SCH (23:09)
[2023-12-21 09:06] LABS: BASO % 0.3 % (0-2.0); EOS % 1.7 % (0-4.5); HEMATOCRIT 34.1 % (32.4-45.2); HEMOGLOBIN 11.4 GM/dL (10.7-15.3); LYMPH % 7.8 % (8-40); MCHC 33.3 g/dl (32.0-36.0); MEAN CELL VOLUME 90.1 fl (80-96); MEAN PLT VOLUME 9.2 fl (7.5-11.1); MONO % 10.3 % (3.8-10.2); NEUT % 79.9 % (42.8-82.8); PLATELET COUNT 261 10^3/uL (134-434); RBC 3.78 M/mm3 (3.60-5.2); RDW 14.6 % (11.6-15.6); WHITE BLOOD COUNT 17.9 K/mm3 (4.0-10.0)
[2023-12-21 09:24] LABS: POTASSIUM 3.5 mmol/L (3.5-5.1)
[2023-12-21] MEDS: LACTATED RINGERS SOLUTION 1,000 ML/1,000 ML INFUS.BAG IV SCH (09:35)
[2023-12-21 09:40] LABS: BLOOD UREA NITROGEN 4.6 mg/dL (7-18)
[2023-12-21 09:41] LABS: CALCIUM 8.5 mg/dL (8.5-10.1)
[2023-12-21 09:43] LABS: CREATININE 0.4 mg/dL (0.55-1.3)
[2023-12-21] MEDS: PIPERACILLIN/TAZOB 4.5 GM 4.5 GM/100 ML BAG IVPB SCH ×2 (14:14→21:38)
[2023-12-21] MEDS: LACTATED RINGERS SOLUTION 1,000 ML IV SCH (14:15)
[2023-12-21] MEDS: D5-1/2NS+10 MEQ KCL - 10 MEQ/1,000 ML INFUS.BAG IV SCH (15:50)
[2023-12-21] MEDS: PIPERACILLIN/TAZOB 4.5 GM 4.5 GM in DEXTROSE 5%-WATER 100 ML IVPB SCH (16:59)
[2023-12-21] MEDS: AMINO ACIDS 4.25%/D5W 1,000 ML IV SCH (19:46)
[2023-12-21] MEDS: ACETAMINOPHEN 1000 MG/100 ML BAG IVPB ONE (23:15)
[2023-12-22 09:25] LABS: POTASSIUM 3.6 mmol/L (3.5-5.1)
[2023-12-22 09:26] LABS: CALCIUM 8.5 mg/dL (8.5-10.1)
[2023-12-22 09:27] LABS: BLOOD UREA NITROGEN 4.6 mg/dL (7-18)
[2023-12-22 09:30] LABS: CREATININE 0.5 mg/dL (0.55-1.3)
[2023-12-22] MEDS ORDERED: clonazePAM 0.5 MG TABLET PO PRN (10:00)
[2023-12-22 10:07] LABS: BASO % 0.3 % (0-2.0); EOS % 3.1 % (0-4.5); HEMATOCRIT 32.8 % (32.4-45.2); HEMOGLOBIN 11.2 GM/dL (10.7-15.3); LYMPH % 9.2 % (8-40); MCH 30.1 pg (25.7-33.7); MCHC 34.2 g/dl (32.0-36.0); MEAN CELL VOLUME 88.2 fl (80-96); MEAN PLT VOLUME 9.4 fl (7.5-11.1); MONO % 10.9 % (3.8-10.2); NEUT % 76.5 % (42.8-82.8); PLATELET COUNT 309 10^3/uL (134-434); RBC 3.72 M/mm3 (3.60-5.2); WHITE BLOOD COUNT 12.7 K/mm3 (4.0-10.0)
[2023-12-22] MEDS: ONDANSETRON 4 MG/2 ML VIAL IVPUSH PRN (10:10)
[2023-12-22] MEDS: oxyCODONE HCL 5 MG TABLET PO PRN (10:10)
[2023-12-22] MEDS: THYROID 30 MG TABLET PO SCH (10:37)
[2023-12-23 08:44] LABS: BASO % 0.7 % (0-2.0); EOS % 3.8 % (0-4.5); HEMATOCRIT 32.2 % (32.4-45.2); HEMOGLOBIN 10.7 GM/dL (10.7-15.3); LYMPH % 12.6 % (8-40); MCH 29.9 pg (25.7-33.7); MCHC 33.2 g/dl (32.0-36.0); MEAN PLT VOLUME 8.9 fl (7.5-11.1); MONO % 13.2 % (3.8-10.2); NEUT % 69.7 % (42.8-82.8); PLATELET COUNT 302 10^3/uL (134-434); RBC 3.57 M/mm3 (3.60-5.2); WHITE BLOOD COUNT 11.2 K/mm3 (4.0-10.0)
[2023-12-23 09:15] LABS: POTASSIUM 3.8 mmol/L (3.5-5.1)
[2023-12-23 09:16] LABS: CALCIUM 8.5 mg/dL (8.5-10.1)
[2023-12-23 09:17] LABS: BLOOD UREA NITROGEN 5.9 mg/dL (7-18)
[2023-12-23 09:20] LABS: CREATININE 0.5 mg/dL (0.55-1.3)
[2023-12-24 08:51] LABS: BASO % 0.6 % (0-2.0); EOS % 4.6 % (0-4.5); HEMATOCRIT 29.7 % (32.4-45.2); HEMOGLOBIN 10.2 GM/dL (10.7-15.3); LYMPH % 18.7 % (8-40); MCH 30.5 pg (25.7-33.7); MCHC 34.2 g/dl (32.0-36.0); MEAN CELL VOLUME 89.2 fl (80-96); MEAN PLT VOLUME 8.7 fl (7.5-11.1); MONO % 16.3 % (3.8-10.2); NEUT % 59.8 % (42.8-82.8); PLATELET COUNT 309 10^3/uL (134-434); RBC 3.34 M/mm3 (3.60-5.2); RDW 14.4 % (11.6-15.6); WHITE BLOOD COUNT 7.6 K/mm3 (4.0-10.0)
[2023-12-24 09:06] LABS: POTASSIUM 3.6 mmol/L (3.5-5.1)
[2023-12-24 09:12] LABS: ALBUMIN 1.8 g/dl (3.4-5.0); BLOOD UREA NITROGEN 4.4 mg/dL (7-18); CALCIUM 8.1 mg/dL (8.5-10.1)
[2023-12-24 09:15] LABS: BILIRUBIN,TOTAL 0.4 mg/dL (0.2-1); TOT PROT 4.8 g/dl (6.4-8.2)
[2023-12-24 09:16] LABS: CREATININE 0.4 mg/dL (0.55-1.3)
[2023-12-24] MEDS: AMINO ACIDS 4.25%/D5W 1,000 ML IV SCH (10:30)
[2023-12-25 09:21] LABS: BASO % 0.4 % (0-2.0); EOS % 4.7 % (0-4.5); HEMATOCRIT 33.2 % (32.4-45.2); HEMOGLOBIN 11.3 GM/dL (10.7-15.3); LYMPH % 19.8 % (8-40); MCH 29.9 pg (25.7-33.7); MCHC 34.1 g/dl (32.0-36.0); MEAN CELL VOLUME 87.9 fl (80-96); MEAN PLT VOLUME 9.2 fl (7.5-11.1); NEUT % 62.1 % (42.8-82.8); PLATELET COUNT 385 10^3/uL (134-434); RBC 3.78 M/mm3 (3.60-5.2); RDW 14.3 % (11.6-15.6); WHITE BLOOD COUNT 8.2 K/mm3 (4.0-10.0)
[2023-12-25 09:33] LABS: POTASSIUM 3.8 mmol/L (3.5-5.1)
[2023-12-25 09:35] LABS: CALCIUM 8.8 mg/dL (8.5-10.1)
[2023-12-25 09:39] LABS: CREATININE 0.4 mg/dL (0.55-1.3)
[2023-12-25] MEDS: CYCLOBENZAPRINE HCL 5 MG TABLET PO SCH (18:29)
[2023-12-25] MEDS: FOLIC ACID INJECTION - 1 MG, THIAMINE HCL 100 MG, MULTIVIT INJECTION ADULT 10 ML in SOD... IVPB ONE (19:10)
[2023-12-25] MEDS: LIDOCAINE PATCH REMOVAL MC SCH (22:11)
[2023-12-26 09:04] LABS: HEMATOCRIT 32.6 % (32.4-45.2); HEMOGLOBIN 10.9 GM/dL (10.7-15.3); MCHC 33.5 g/dl (32.0-36.0); MEAN CELL VOLUME 89.7 fl (80-96); PLATELET COUNT 414 10^3/uL (134-434); RBC 3.63 M/mm3 (3.60-5.2); RDW 14.2 % (11.6-15.6); WHITE BLOOD COUNT 9.4 K/mm3 (4.0-10.0)
[2023-12-26 09:21] LABS: POTASSIUM 3.6 mmol/L (3.5-5.1)
[2023-12-26 09:26] LABS: BLOOD UREA NITROGEN 4.2 mg/dL (7-18); CALCIUM 8.9 mg/dL (8.5-10.1); MAGNESIUM 1.8 mg/dL (1.8-2.4)
[2023-12-26 09:29] LABS: CREATININE 0.4 mg/dL (0.55-1.3)
[2023-12-26 09:30] LABS: BILIRUBIN,TOTAL 0.4 mg/dL (0.2-1); PHOSPHOROUS 3.4 mg/dL (2.5-4.9); TOT PROT 5.6 g/dl (6.4-8.2)
[2023-12-26 09:31] LABS: ALBUMIN 2.2 g/dl (3.4-5.0)
[2023-12-26] MEDS: THYROID 15 MG TABLET PO SCH (10:18)
[2023-12-26] MEDS: LIDOCAINE 5% TOPICAL PATCH TP SCH (10:47)
[2023-12-27 08:41] LABS: HEMATOCRIT 31.2 % (32.4-45.2); HEMOGLOBIN 10.6 GM/dL (10.7-15.3); MCH 29.7 pg (25.7-33.7); MCHC 33.8 g/dl (32.0-36.0); MEAN CELL VOLUME 87.8 fl (80-96); MEAN PLT VOLUME 8.7 fl (7.5-11.1); PLATELET COUNT 443 10^3/uL (134-434); RBC 3.56 M/mm3 (3.60-5.2); RDW 14.7 % (11.6-15.6); WHITE BLOOD COUNT 10.4 K/mm3 (4.0-10.0)
[2023-12-27 09:12] LABS: POTASSIUM 3.1 mmol/L (3.5-5.1)
[2023-12-27 09:16] LABS: BLOOD UREA NITROGEN 4.6 mg/dL (7-18)
[2023-12-27 09:18] LABS: CALCIUM 8.5 mg/dL (8.5-10.1); MAGNESIUM 1.7 mg/dL (1.8-2.4)
[2023-12-27 09:19] LABS: CREATININE 0.4 mg/dL (0.55-1.3); PHOSPHOROUS 4.4 mg/dL (2.5-4.9)
[2023-12-27] MEDS: POTASSIUM CHLORIDE ORAL LIQUID 20 MEQ/15 ML PO SCH (13:29)
[2023-12-27 15:24] VITALS: BP 108/71; PULSE 88; RESP 18; TEMP 98.2
== END 2023-12-27 20:47 | disposition home or self-care (01) | DRG 221 ==
LOC: J2C 04:32 → J8W 23:11
PROVIDERS: ADMIT Family Medicine; ATTEND Family Medicine
PROC: 8E0W4CZ Robotic Assisted Procedure of Trunk Region, Percutaneous Endoscopic Approach (ICD-10-PCS; 2023-12-18)
PROC: 0DNW4ZZ Release Peritoneum, Percutaneous Endoscopic Approach (ICD-10-PCS; 2023-12-18)
PROC: 0T788DZ Dilation of Bilateral Ureters with Intraluminal Device, Via Natural or Artificial Opening Endoscopic (ICD-10-PCS; principal; 2023-12-18 10:30)
PROC: 0DTN4ZZ Resection of Sigmoid Colon, Percutaneous Endoscopic Approach (ICD-10-PCS; 2023-12-18 10:30)
DX: K57.92 Diverticulitis of intestine, part unspecified, without perforation or abscess without bleeding (principal); F31.9 Bipolar disorder, unspecified; J18.9 Pneumonia, unspecified organism; E03.9 Hypothyroidism, unspecified; F41.9 Anxiety disorder, unspecified; R00.0 Tachycardia, unspecified; D72.829 Elevated white blood cell count, unspecified; J98.11 Atelectasis; K21.9 Gastro-esophageal reflux disease without esophagitis; J95.89 Other postprocedural complications and disorders of respiratory system, not elsewhere classified; F17.200 Nicotine dependence, unspecified, uncomplicated; Z98.84 Bariatric surgery status; E66.9 Obesity, unspecified; Z68.41 Body mass index [BMI] 40.0-44.9, adult
CPT/HCPCS: 0241U-QW; 36415; 71045-TC-FY; 71260-TC; 74177-TC; 80048; 80053; 81025; 82607; 82962; 83735; 84100; 84443; 85025; 85027; 86140; 86850; 86900; 86901; 87070; 87205; 88307-TC; 93970-TC; 94010; 94760; 97116-GP; 97161-GP; J0131; Q9967

== ENCOUNTER 2023-12-28 15:02 | Inpatient (IN) | payer OTHER ==
[2023-12-28] MEDS ORDERED: ACETAMINOPHEN INJECTION 100 ML ONE (16:13)
[2023-12-28] MEDS ORDERED: MORPHINE SULFATE 2 MG/ML SYRINGE ONE ×2 (16:21→18:09)
[2023-12-28] MEDS ORDERED: ONDANSETRON 4 MG/2 ML VIAL ONE ×2 (16:21→22:33)
[2023-12-28] MEDS: ONDANSETRON 4 MG/2 ML VIAL IVPB ONE (17:10)
[2023-12-28] MEDS: SODIUM CHLORIDE 0.9% 500 ML INFUS.BAG IV ONE (17:10)
[2023-12-28] MEDS: morphine SULFATE 4 MG/ML VIAL IVPUSH ONE (17:15)
[2023-12-28 17:50] LABS: BASO % 0.2 % (0-2.0); EOS % 0.6 % (0-4.5); HEMATOCRIT 33.1 % (32.4-45.2); HEMOGLOBIN 11.1 GM/dL (10.7-15.3); LYMPH % 8.6 % (8-40); MCH 29.1 pg (25.7-33.7); MCHC 33.5 g/dl (32.0-36.0); MEAN PLT VOLUME 8.9 fl (7.5-11.1); NEUT % 81.6 % (42.8-82.8); PLATELET COUNT 507 10^3/uL (134-434); RBC 3.81 M/mm3 (3.60-5.2); RDW 14.9 % (11.6-15.6); WHITE BLOOD COUNT 16.4 K/mm3 (4.0-10.0)
[2023-12-28 18:00] LABS: INR 1.57 (0.83-1.09); PROTHROMBIN TIME (PATIENT) 17.5 SEC (9.7-13.0)
[2023-12-28 18:02] LABS: ACTIVATED PTT 41.3 SECONDS (25.2-36.5)
[2023-12-28 18:12] LABS: POTASSIUM 3.4 mmol/L (3.5-5.1)
[2023-12-28 18:14] LABS: ALBUMIN 2.4 g/dl (3.4-5.0); BLOOD UREA NITROGEN 9.5 mg/dL (7-18); CALCIUM 8.8 mg/dL (8.5-10.1)
[2023-12-28 18:17] LABS: CREATININE 0.7 mg/dL (0.55-1.3)
[2023-12-28 18:19] LABS: BILIRUBIN,TOTAL 0.5 mg/dL (0.2-1); TOT PROT 6.4 g/dl (6.4-8.2)
[2023-12-28] MEDS: morphine CARPU-JECT 2 MG/1 ML DISP.SYRIN IVPUSH ONE (18:20)
[2023-12-28 19:08] LABS: HIV INTERPRETATION NEGATIVE (NEGATIVE)
[2023-12-28] MEDS ORDERED: FAMOTIDINE 20 MG/50 ML IVPB 20 MG/50 ML MG IVPB ONE (19:35)
[2023-12-28] MEDS: FAMOTIDINE 20 MG/50 ML IVPB 20 MG/50 ML MG IVPB ONE (19:43)
[2023-12-28] MEDS ORDERED: MAG HYDROX/AL HYDROX/SIMETH 30 ML UNIT-DOSE CUP ONE (20:45)
[2023-12-28] MEDS: MAG HYDROX/AL HYDROX/SIMETH -MYLANTA- ORAL SUSPENSION PO ONE (21:06)
[2023-12-28] MEDS: SODIUM CHLORIDE 1,000 ML IV STA (21:07)
[2023-12-28] MEDS ORDERED: PIPERACILLIN/TAZOB 4.5 GM 4.5 GM/100 ML BAG IVPB ONE (21:56)
[2023-12-28] MEDS: PIPERACILLIN/TAZOB 4.5 GM 4.5 GM in DEXTROSE 5%-WATER 100 ML IVPB ONE (22:18)
[2023-12-28] MEDS: KETOROLAC TROMETHAMINE 15 MG/ML VIAL IVPUSH PRN (22:28)
[2023-12-28] MEDS ORDERED: ONDANSETRON *ODT* 4 MG TABLET ONE (22:32)
[2023-12-28] MEDS: ONDANSETRON 4 MG/2 ML VIAL IVPUSH ONE (22:53)
[2023-12-29] MEDS: SODIUM CHLORIDE 0.9% 500 ML INFUS.BAG IV ONE (00:17)
[2023-12-29] MEDS: METOCLOPRAMIDE HCL INJECTION 10 MG/2 ML VIAL IVPUSH ONE (00:52)
[2023-12-29] MEDS: PIPERACILLIN/TAZOB 4.5 GM 4.5 GM in DEXTROSE 5%-WATER 100 ML IVPB SCH ×2 (04:16→14:47)
[2023-12-29] MEDS ORDERED: PIPERACILLIN/TAZOB 4.5 GM 4.5 GM/100 ML BAG IVPB ONE (04:16)
[2023-12-29] MEDS ORDERED: INDOCYANINE GREEN 25 MG/10 ML VIAL IVPUSH ONE ×2 (05:17→08:18)
[2023-12-29] MEDS ORDERED: BUPIVACAINE HCL/PF 0.25% (2.5MG/ML) 10 ML VIAL ONE (05:17)
[2023-12-29] MEDS ORDERED: cefOXitin SODIUM 2 GM VIAL (RESTRICTED TO ID) IVPB ONE ×2 (05:17→10:31)
[2023-12-29] MEDS ORDERED: HEPARIN NA (PORCINE) 5,000 UNITS/ML 1ML VIAL ONE (05:17)
[2023-12-29] MEDS ORDERED: SUCCINYLCHOLINE CHLORIDE 200 MG/10 ML SYRINGE ONE (05:30)
[2023-12-29] MEDS ORDERED: PROPOFOL 40 ML ONE (05:31)
[2023-12-29] MEDS ORDERED: ROCURONIUM BROMIDE 50 MG/5 ML SYRINGE ONE ×3 (05:31→08:05)
[2023-12-29] MEDS ORDERED: ONDANSETRON 4 MG/2 ML VIAL IVPUSH PRN (05:44)
[2023-12-29] MEDS ORDERED: ALBUTEROL SO4 HFA INHALER IH ONE (05:49)
[2023-12-29] MEDS ORDERED: MIDAZOLAM HCL 2 MG/2 ML SINGLE DOSE VIAL ONE (05:52)
[2023-12-29] MEDS: cefoTEtan DISODIUM 2 GM VIAL (RESTRICTED TO ID) IVPB ONE (06:20)
[2023-12-29] MEDS ORDERED: HYDROmorphone HCl 2 MG/ML VIAL ONE (06:28)
[2023-12-29] MEDS ORDERED: CALCIUM CHLORIDE 1 GM/10 ML *DISP.SYRIN ONE (07:59)
[2023-12-29] MEDS ORDERED: BENZOIN/ALOE VERA/STORAX/TOLU 58 ML BOTTLE ONE (10:17)
[2023-12-29] MEDS ORDERED: CEFOXITIN SODIUM 1 GM IVPB ONE (10:31)
[2023-12-29] MEDS ORDERED: PROPOFOL 1,000,000 MCG/100 ML VIAL ONE (11:09)
[2023-12-29] MEDS: PROPOFOL 1,000,000 MCG/100 ML VIAL IVPB SCH (11:20)
[2023-12-29] MEDS: HYDROmorphone HCl 2 MG/ML VIAL IVPUSH ONE (12:45)
[2023-12-29] MEDS: LACTATED RINGERS SOLUTION 1,000 ML IV SCH (12:50)
[2023-12-29] MEDS ORDERED: HYDROmorphone HCL CARPU-JECT 2 MG/1 ML DISP.SYRIN ONE (12:54)
[2023-12-29] MEDS: FENTANYL NS IVPB 500 MCG/100 ML BAG IVPB SCH (14:03)
[2023-12-29] MEDS: ALBUMIN HUMAN 5% 500 ML IV SOLUTION IV ONE (14:45)
[2023-12-29] MEDS: ACETAMINOPHEN 1000 MG/100 ML BAG IVPB PRN (15:51)
[2023-12-29] MEDS: LACTATED RINGERS SOLUTION 1,000 ML/1,000 ML INFUS.BAG IV STA ×2 (16:08→18:50)
[2023-12-29] MEDS: HEPARIN NA (PORCINE) 5,000 UNITS/ML 1ML VIAL SQ SCH (16:10)
[2023-12-29] MEDS: MEROPENEM-0.9% SODIUM CHLORIDE 1 GM/50 ML BAG IVPB SCH (16:48)
[2023-12-29 16:58] LABS: HEMATOCRIT 36.8 % (32.4-45.2); HEMOGLOBIN 11.9 GM/dL (10.7-15.3); MCH 28.9 pg (25.7-33.7); MCHC 32.3 g/dl (32.0-36.0); MEAN CELL VOLUME 89.2 fl (80-96); PLATELET COUNT 600 10^3/uL (134-434); RBC 4.12 M/mm3 (3.60-5.2); RDW 14.8 % (11.6-15.6); WHITE BLOOD COUNT 20.6 K/mm3 (4.0-10.0)
[2023-12-29 17:11] LABS: EPI CELLS 5 /uL (0-25.1); HYALINE CASTS 1 /uL (0-3.1); PH,URINE 5.5 (5.0-8.0); URINE APPEARANCE CLOUDY; URINE BACTERIA 28 /uL (0-1359); URINE BILIRUBIN NEGATIVE (NEGATIVE); URINE COLOR DK YELLOW; URINE GLUCOSE (UA) NEGATIVE (NEGATIVE); URINE KETONE 1+ (NEGATIVE); URINE LEUK ESTERASE NEGATIVE (NEGATIVE); URINE NITRITE NEGATIVE (NEGATIVE); URINE PROTEIN 2+ (NEGATIVE); URINE RBC 31077 /uL (0-23.9); URINE UROBILINOGEN 0.2 mg/dL (0.2-1.0)
[2023-12-29 17:33] LABS: POTASSIUM 3.7 mmol/L (3.5-5.1)
[2023-12-29 17:35] LABS: BLOOD UREA NITROGEN 6.1 mg/dL (7-18)
[2023-12-29 17:39] LABS: CREATININE 0.8 mg/dL (0.55-1.3)
[2023-12-29 17:40] LABS: ALBUMIN 1.8 g/dl (3.4-5.0); BILIRUBIN,TOTAL 1.1 mg/dL (0.2-1); TOT PROT 4.4 g/dl (6.4-8.2)
[2023-12-29] MEDS: LACTATED RINGERS SOLUTION 1,000 ML/1,000 ML INFUS.BAG IV ONE (20:35)
[2023-12-29 21:10] LABS: URINE WBC 115.1 /uL (0-25.8)
[2023-12-29] MEDS: LACTATED RINGERS SOLUTION 1,000 ML/1,000 ML INFUS.BAG IV SCH (21:57)
[2023-12-29] MEDS: NOREPINEPHRINE BITARTRATE/D5W 8 MG/250 ML BAG IVPB SCH (22:10)
[2023-12-30 07:03] LABS: POTASSIUM 3.8 mmol/L (3.5-5.1)
[2023-12-30 07:07] LABS: CALCIUM 8.1 mg/dL (8.5-10.1)
[2023-12-30 07:09] LABS: BLOOD UREA NITROGEN 8.9 mg/dL (7-18); MAGNESIUM 1.3 mg/dL (1.8-2.4)
[2023-12-30 07:12] LABS: CREATININE 0.5 mg/dL (0.55-1.3); PHOSPHOROUS 4.5 mg/dL (2.5-4.9)
[2023-12-30 07:17] LABS: HEMATOCRIT 31.6 % (32.4-45.2); HEMOGLOBIN 10.6 GM/dL (10.7-15.3); MCH 29.7 pg (25.7-33.7); MCHC 33.6 g/dl (32.0-36.0); MEAN CELL VOLUME 88.4 fl (80-96); MEAN PLT VOLUME 9.4 fl (7.5-11.1); PLATELET COUNT 550 10^3/uL (134-434); RBC 3.58 M/mm3 (3.60-5.2); RDW 14.9 % (11.6-15.6); WHITE BLOOD COUNT 22.7 K/mm3 (4.0-10.0)
[2023-12-30] MEDS ORDERED: ONDANSETRON 4 MG/2 ML VIAL ONE (09:58)
[2023-12-30] MEDS: MAGNESIUM SULFATE IN WATER 2 GM/50 ML IVPB IVPB ONE (10:09)
[2023-12-30] MEDS: ONDANSETRON 4 MG/2 ML VIAL IVPUSH PRN (10:43)
[2023-12-30 10:46] LABS: ANISOCYTOSIS 0; HELMET CELLS 0; HOWELL-JOLLY BODIES 0; MACROCYTOSIS 0; OVALOCYTE 0; ROULEAU 0; SICKELED CELLS 0; TARGET CELLS 0; TEAR DROP CELLS 0; TOXIC GRANULATION 0
[2023-12-30] MEDS: ALBUMIN HUMAN 5% 500 ML IV SOLUTION IV ONE (12:23)
[2023-12-30] MEDS: PANTOPRAZOLE SODIUM 40 MG VIAL IVPUSH SCH (16:03)
[2023-12-30] MEDS: HYDROmorphone HCl 2 MG/ML VIAL IVPUSH ONE (18:03)
[2023-12-30] MEDS: ACETAMINOPHEN 1000 MG/100 ML BAG IVPB PRN (18:03)
[2023-12-30] MEDS: LACTATED RINGERS SOLUTION 1000 ML INFUS.BAG IV ONE (18:35)
[2023-12-30] MEDS: PROCHLORPERAZINE INJECTION 10 MG/2 ML VIAL IVPB PRN (19:50)
[2023-12-30] MEDS: AMINO ACIDS 4.25%/D5W 1,000 ML IV SCH (21:24)
[2023-12-30] MEDS: FAT EMULSION/OLIVE/SOY/PHOSPHO 250 ML IV SCH (21:43)
[2023-12-30] MEDS ORDERED: FAT EMULSION/OLIVE/SOY (CLINOLIPID) 250 ML EMULSION IV SCH (22:00)
[2023-12-31 06:36] LABS: BASO % 0.4 % (0-2.0); EOS % 2.4 % (0-4.5); HEMATOCRIT 25.8 % (32.4-45.2); HEMOGLOBIN 8.5 GM/dL (10.7-15.3); LYMPH % 6.8 % (8-40); MEAN PLT VOLUME 9.3 fl (7.5-11.1); MONO % 7.4 % (3.8-10.2); PLATELET COUNT 488 10^3/uL (134-434); RBC 2.93 M/mm3 (3.60-5.2); RDW 14.8 % (11.6-15.6); WHITE BLOOD COUNT 17.9 K/mm3 (4.0-10.0)
[2023-12-31 06:48] LABS: POTASSIUM 3.2 mmol/L (3.5-5.1)
[2023-12-31 06:52] LABS: CALCIUM 8.2 mg/dL (8.5-10.1)
[2023-12-31 06:53] LABS: BLOOD UREA NITROGEN 9.7 mg/dL (7-18); MAGNESIUM 1.8 mg/dL (1.8-2.4)
[2023-12-31 06:57] LABS: CREATININE 0.3 mg/dL (0.55-1.3); PHOSPHOROUS 1.9 mg/dL (2.5-4.9)
[2023-12-31] MEDS: MAGNESIUM SULFATE IN WATER 2 GM/50 ML IVPB IVPB ONE (09:28)
[2023-12-31] MEDS ORDERED: ALBUMIN HUMAN 5% 250 ML IV SOLUTION IV ONE (10:00)
[2023-12-31] MEDS: HYDROmorphone HCl 2 MG/ML VIAL IVPUSH PRN ×2 (10:06→13:10)
[2023-12-31] MEDS: KCL 10 MEQ IVPB 10 MEQ/100 ML INFUS.BAG IVPB SCH (10:54)
[2023-12-31] MEDS: TRANEXAMIC ACID 1000 MG/10 ML VIAL IVPUSH SCH (11:22)
[2023-12-31] MEDS: ALBUMIN HUMAN 5% 500 ML IV SOLUTION IV ONE (11:22)
[2023-12-31] MEDS: POTASSIUM PHOSPHATE 30 MM in SODIUM CHLORIDE 500 ML IVPB ONE (11:25)
[2023-12-31] MEDS: AMINO ACID IVPB SCH (15:34)
[2023-12-31] MEDS: MULTIVIT IVPB SCH (15:34)
[2023-12-31] MEDS: SODIUM CHLORIDE IVPB SCH (15:34)
[2023-12-31] MEDS: [UNRECOGNIZED DRUG - OTHER] IVPB SCH (15:34)
[2023-12-31] MEDS: VANCOMYCIN PREMIX 1.5 GM 1,500 MG/300 ML BAG IVPB SCH (21:28)
[2024-01-01 07:45] LABS: HEMATOCRIT 28.2 % (32.4-45.2); HEMOGLOBIN 9.3 GM/dL (10.7-15.3); MCH 29.3 pg (25.7-33.7); MCHC 32.9 g/dl (32.0-36.0); MEAN CELL VOLUME 89.1 fl (80-96); MEAN PLT VOLUME 9.2 fl (7.5-11.1); PLATELET COUNT 527 10^3/uL (134-434); RBC 3.17 M/mm3 (3.60-5.2); RDW 14.7 % (11.6-15.6); WHITE BLOOD COUNT 15.6 K/mm3 (4.0-10.0)
[2024-01-01] MEDS: HYDROmorphone HCl 2 MG/ML VIAL IVPB ONE (07:59)
[2024-01-01 08:05] LABS: POTASSIUM 3.3 mmol/L (3.5-5.1)
[2024-01-01 08:07] LABS: CALCIUM 7.9 mg/dL (8.5-10.1)
[2024-01-01 08:08] LABS: ALBUMIN 1.7 g/dl (3.4-5.0); MAGNESIUM 1.7 mg/dL (1.8-2.4)
[2024-01-01 08:11] LABS: CREATININE 0.3 mg/dL (0.55-1.3); PHOSPHOROUS 2.7 mg/dL (2.5-4.9)
[2024-01-01 08:12] LABS: BILIRUBIN,TOTAL 0.6 mg/dL (0.2-1); TOT PROT 4.6 g/dl (6.4-8.2)
[2024-01-01] MEDS ORDERED: RAPID SEQUENCE INTUBATION KIT NR ONE (08:18)
[2024-01-01] MEDS ORDERED: FUROSEMIDE 40 MG/4 ML INJECTABLE VIAL ONE ×2 (08:35→18:26)
[2024-01-01] MEDS: FUROSEMIDE 40 MG/4 ML INJECTABLE VIAL IVPUSH ONE ×2 (08:41→18:36)
[2024-01-01] MEDS ORDERED: ACETAMINOPHEN 1000 MG/100 ML BAG IVPB PRN (08:59)
[2024-01-01] MEDS ORDERED: ACETAMINOPHEN INJECTION 100 ML ONE (09:08)
[2024-01-01 09:12] LABS: ANISOCYTOSIS 0; HELMET CELLS 0; HOWELL-JOLLY BODIES 0; MACROCYTOSIS 0; OVALOCYTE 0; ROULEAU 0; SICKELED CELLS 0; TARGET CELLS 0; TEAR DROP CELLS 0; TOXIC GRANULATION 0
[2024-01-01] MEDS: ACETAMINOPHEN 1000 MG/100 ML BAG IVPB ONE (09:15)
[2024-01-01] MEDS: ALBUMIN HUMAN 5% 250 ML IV SOLUTION IV ONE (10:15)
[2024-01-01] MEDS: MAGNESIUM 2GM/50ML STERILE WATER IVPB IVPB ONE (10:15)
[2024-01-01 10:25] LABS: ARTERIAL BLD GAS O2 SATURATION 94.8 % (95-98); ARTERIAL BLOOD GAS BASE EXCESS 4.3 mmol/L (-2-2); ARTERIAL BLOOD GAS PO2 67.5 mmHg (80-100); ARTERIAL BLOOD GAS pH 7.491 (7.350-7.450)
[2024-01-01 10:31] LABS: ALLENS TEST POSITIVE
[2024-01-01 10:35] LABS: VENT MODE ST
[2024-01-01] MEDS: POTASSIUM PHOSPHATE 15 MM in SODIUM CHLORIDE 100 ML IVPB ONE (12:30)
[2024-01-01] MEDS: KCL 20 MEQ PREMIX BAG 20 MEQ/100 ML INFUS.BAG IVPB ONE (14:13)
[2024-01-01] MEDS: HYDROmorphone *PCA* 10MG/50ML DISP.SYRIN PCA SCH (15:38)
[2024-01-01 15:48] LABS: ARTERIAL BLOOD GAS BASE EXCESS 3.2 mmol/L (-2-2); ARTERIAL BLOOD GAS PO2 66.7 mmHg (80-100); ARTERIAL BLOOD GAS pH 7.448 (7.350-7.450)
[2024-01-01 15:50] LABS: ALLENS TEST POSITIVE; VENT MODE S/T
[2024-01-01] MEDS: [UNRECOGNIZED DRUG - OTHER] IVPB SCH (15:52)
[2024-01-01] MEDS: POTASSIUM CHLORIDE IVPB SCH (15:52)
[2024-01-01] MEDS: MULTIVIT IVPB SCH (15:52)
[2024-01-01] MEDS: MAGNESIUM SULFATE IVPB SCH (15:52)
[2024-01-01] MEDS: ACETAMINOPHEN 1000 MG/100 ML BAG IVPB PRN (17:55)
[2024-01-01] MEDS: DEXAMETHASONE SOD PHOSPHATE 4 MG/1 ML VIAL IVPUSH PRN (18:36)
[2024-01-01] MEDS: FAT EMUL/SOY/MCT/OLIV/FISH OIL 250 ML IV SCH (21:48)
[2024-01-02 07:17] LABS: BASO % 0.1 % (0-2.0); EOS % 0.2 % (0-4.5); HEMATOCRIT 26.1 % (32.4-45.2); LYMPH % 5.2 % (8-40); MCHC 34.4 g/dl (32.0-36.0); MEAN CELL VOLUME 87.4 fl (80-96); MEAN PLT VOLUME 8.6 fl (7.5-11.1); MONO % 12.3 % (3.8-10.2); NEUT % 82.2 % (42.8-82.8); PLATELET COUNT 471 10^3/uL (134-434); RBC 2.99 M/mm3 (3.60-5.2); RDW 14.7 % (11.6-15.6); WHITE BLOOD COUNT 13.5 K/mm3 (4.0-10.0)
[2024-01-02 07:37] LABS: ALBUMIN 1.7 g/dl (3.4-5.0); BLOOD UREA NITROGEN 9.2 mg/dL (7-18); CALCIUM 8.3 mg/dL (8.5-10.1); MAGNESIUM 1.9 mg/dL (1.8-2.4)
[2024-01-02 07:40] LABS: CREATININE 0.2 mg/dL (0.55-1.3)
[2024-01-02 07:41] LABS: PHOSPHOROUS 2.8 mg/dL (2.5-4.9)
[2024-01-02 07:42] LABS: BILIRUBIN,TOTAL 0.5 mg/dL (0.2-1); TOT PROT 5.1 g/dl (6.4-8.2)
[2024-01-02] MEDS: FUROSEMIDE 40 MG/4 ML INJECTABLE VIAL IVPUSH ONE (09:10)
[2024-01-02] MEDS: ENOXAPARIN NA (PORCINE) 80 MG/0.8 ML DISP.SYRIN SQ SCH (09:11)
[2024-01-02] MEDS: KCL 10 MEQ IVPB 10 MEQ/100 ML INFUS.BAG IVPB SCH (09:11)
[2024-01-02] MEDS: FUROSEMIDE 40 MG/4 ML INJECTABLE VIAL IVPUSH SCH ×2 (09:43→13:26)
[2024-01-02] MEDS ORDERED: ENOXAPARIN NA (PORCINE) 100 MG/1 ML DISP.SYRIN SQ SCH (12:00)
[2024-01-02] MEDS: ENOXAPARIN NA (PORCINE) 40 MG/0.4 ML DISP.SYRIN SQ ONE (13:47)
[2024-01-02] MEDS ORDERED: DEXAMETHASONE SOD PHOSPHATE 4 MG/1 ML VIAL IVPUSH PRN (13:55)
[2024-01-02 15:52] VITALS: BMI 40.5
[2024-01-02] MEDS ORDERED: BENZOIN/ALOE VERA/STORAX/TOLU 58 ML BOTTLE ONE (16:55)
[2024-01-02 21:33] LABS: CHLORIDE 99 mmol/L (98-107); SODIUM 140 mmol/L (136-145)
[2024-01-02 21:35] LABS: CALCIUM 8.7 mg/dL (8.5-10.1)
[2024-01-02 21:36] LABS: ALBUMIN 1.7 g/dl (3.4-5.0); ANION GAP 6 mmol/L (4-13); BLOOD UREA NITROGEN 16.2 mg/dL (7-18); CO2 34 mmol/L (21-32); GLUCOSE,RANDOM 106 mg/dL (74-106)
[2024-01-02 21:39] LABS: CREATININE 0.5 mg/dL (0.55-1.3); SGOT/AST 12 U/L (15-37)
[2024-01-02 21:40] LABS: SGPT/ALT < 6 U/L (13-61)
[2024-01-02 21:41] LABS: BILIRUBIN,TOTAL 0.5 mg/dL (0.2-1); TOT PROT 5.1 g/dl (6.4-8.2)
[2024-01-02 21:42] LABS: ALK PHOS 61 U/L (45-117)
[2024-01-02 21:58] LABS: ARTERIAL BLD GAS O2 SATURATION 98.2 % (95-98); ARTERIAL BLOOD GAS BASE EXCESS 7.9 mmol/L (-2-2); ARTERIAL BLOOD GAS PO2 96.2 mmHg (80-100); ARTERIAL BLOOD GAS pH 7.578 (7.350-7.450)
[2024-01-02] MEDS: MAGNESIUM SULFATE IN WATER 2 GM/50 ML IVPB IVPB ONE (22:23)
[2024-01-02] MEDS: ENOXAPARIN NA (PORCINE) 100 MG/1 ML DISP.SYRIN SQ SCH (22:24)
[2024-01-02] MEDS ORDERED: ACETAMINOPHEN 1000 MG/100 ML BAG IVPB PRN (22:25)
[2024-01-02] MEDS: KCL 20 MEQ PREMIX BAG 20 MEQ/100 ML INFUS.BAG IVPB SCH (22:52)
[2024-01-02 23:56] LABS: HEMATOCRIT 27.5 % (32.4-45.2); HEMOGLOBIN 9.1 GM/dL (10.7-15.3); MCH 28.8 pg (25.7-33.7); MCHC 33.2 g/dl (32.0-36.0); MEAN CELL VOLUME 86.7 fl (80-96); MEAN PLT VOLUME 8.5 fl (7.5-11.1); PLATELET COUNT 492 10^3/uL (134-434); RBC 3.17 M/mm3 (3.60-5.2); RDW 14.5 % (11.6-15.6); WHITE BLOOD COUNT 12.2 K/mm3 (4.0-10.0)
[2024-01-03 05:50] LABS: ANISOCYTOSIS 3+; MACROCYTOSIS 0; ROULEAU 1+
[2024-01-03 06:25] LABS: ARTERIAL BLD GAS O2 SATURATION 96.2 % (95-98); ARTERIAL BLOOD GAS PO2 74.6 mmHg (80-100); ARTERIAL BLOOD GAS pH 7.524 (7.350-7.450)
[2024-01-03 06:36] LABS: HEMATOCRIT 27.1 % (32.4-45.2); HEMOGLOBIN 9.1 GM/dL (10.7-15.3); MCH 29.4 pg (25.7-33.7); MCHC 33.4 g/dl (32.0-36.0); MEAN CELL VOLUME 87.9 fl (80-96); MEAN PLT VOLUME 8.7 fl (7.5-11.1); PLATELET COUNT 507 10^3/uL (134-434); RBC 3.08 M/mm3 (3.60-5.2); RDW 14.6 % (11.6-15.6); WHITE BLOOD COUNT 11.7 K/mm3 (4.0-10.0)
[2024-01-03 06:54] LABS: POTASSIUM 3.6 mmol/L (3.5-5.1)
[2024-01-03 06:56] LABS: ALBUMIN 1.7 g/dl (3.4-5.0); BLOOD UREA NITROGEN 17.1 mg/dL (7-18); CALCIUM 8.8 mg/dL (8.5-10.1)
[2024-01-03 07:00] LABS: CREATININE 0.3 mg/dL (0.55-1.3); PHOSPHOROUS 2.6 mg/dL (2.5-4.9)
[2024-01-03 07:01] LABS: BILIRUBIN,TOTAL 0.4 mg/dL (0.2-1); TOT PROT 5.2 g/dl (6.4-8.2)
[2024-01-03 07:03] LABS: CHOLESTEROL 115 mg/dL (50-200)
[2024-01-03 07:04] LABS: LDL CHOLESTEROL (ONLY SJRH) 74 mg/dL (5-100)
[2024-01-03 07:07] LABS: HDL CHOLESTEROL 17 mg/dL (40-60)
[2024-01-03] MEDS: FUROSEMIDE 40 MG/4 ML INJECTABLE VIAL IVPUSH SCH (09:24)
[2024-01-03] MEDS: METOCLOPRAMIDE HCL INJECTION 10 MG/2 ML VIAL IVPUSH SCH (09:24)
[2024-01-03 10:01] LABS: ANISOCYTOSIS 0; HELMET CELLS 0; HOWELL-JOLLY BODIES 0; MACROCYTOSIS 0; OVALOCYTE 0; ROULEAU 0; SICKELED CELLS 0; TARGET CELLS 0; TEAR DROP CELLS 0; TOXIC GRANULATION 0
[2024-01-03] MEDS: KCL 10 MEQ IVPB 10 MEQ/100 ML INFUS.BAG IVPB SCH (12:25)
[2024-01-04 06:52] LABS: HEMATOCRIT 27.2 % (32.4-45.2); MCH 29.1 pg (25.7-33.7); MCHC 33.2 g/dl (32.0-36.0); MEAN CELL VOLUME 87.8 fl (80-96); MEAN PLT VOLUME 8.8 fl (7.5-11.1); PLATELET COUNT 465 10^3/uL (134-434); RBC 3.09 M/mm3 (3.60-5.2); RDW 14.9 % (11.6-15.6); WHITE BLOOD COUNT 12.4 K/mm3 (4.0-10.0)
[2024-01-04 07:05] LABS: POTASSIUM 3.5 mmol/L (3.5-5.1)
[2024-01-04 07:08] LABS: CALCIUM 8.5 mg/dL (8.5-10.1)
[2024-01-04 07:09] LABS: ALBUMIN 1.7 g/dl (3.4-5.0); BLOOD UREA NITROGEN 16.6 mg/dL (7-18); MAGNESIUM 1.7 mg/dL (1.8-2.4)
[2024-01-04 07:12] LABS: CREATININE 0.2 mg/dL (0.55-1.3)
[2024-01-04 07:14] LABS: BILIRUBIN,TOTAL 0.6 mg/dL (0.2-1); TOT PROT 5.3 g/dl (6.4-8.2)
[2024-01-04 09:01] LABS: ANISOCYTOSIS 0; MACROCYTOSIS 0
[2024-01-04] MEDS: morphine SULFATE 4 MG/ML VIAL IVPUSH PRN (12:59)
[2024-01-04] MEDS: ONDANSETRON 4 MG/2 ML VIAL IVPUSH SCH (14:05)
[2024-01-04] MEDS: oxyCODONE HCL 5 MG TABLET PO PRN ×2 (15:24→21:22)
[2024-01-04] MEDS: MAGNESIUM SULFATE IVPB SCH (15:31)
[2024-01-04] MEDS: POTASSIUM CHLORIDE IVPB SCH (15:31)
[2024-01-04] MEDS: MULTIVIT IVPB SCH (15:31)
[2024-01-04] MEDS: [UNRECOGNIZED DRUG - OTHER] IVPB SCH (15:31)
[2024-01-04] MEDS: MAGNESIUM 2GM/50ML STERILE WATER IVPB IVPB ONE (15:32)
[2024-01-04] MEDS: KCL 10 MEQ IVPB 10 MEQ/100 ML INFUS.BAG IVPB SCH (15:32)
[2024-01-04] MEDS: ACETAMINOPHEN 325 MG TABLET (FP) PO SCH (21:21)
[2024-01-04] MEDS: FAT EMUL/SOY/MCT/OLIV/FISH OIL 250 ML IV SCH (21:24)
[2024-01-05 07:37] LABS: HEMATOCRIT 28.5 % (32.4-45.2); HEMOGLOBIN 9.6 GM/dL (10.7-15.3); MCHC 33.6 g/dl (32.0-36.0); MEAN CELL VOLUME 86.5 fl (80-96); MEAN PLT VOLUME 9.2 fl (7.5-11.1); PLATELET COUNT 425 10^3/uL (134-434); RDW 14.7 % (11.6-15.6); WHITE BLOOD COUNT 12.6 K/mm3 (4.0-10.0)
[2024-01-05 07:41] LABS: POTASSIUM 3.6 mmol/L (3.5-5.1)
[2024-01-05 07:47] LABS: ALBUMIN 1.8 g/dl (3.4-5.0); BLOOD UREA NITROGEN 15.1 mg/dL (7-18); CALCIUM 8.2 mg/dL (8.5-10.1)
[2024-01-05 07:48] LABS: MAGNESIUM 2.1 mg/dL (1.8-2.4)
[2024-01-05 07:50] LABS: CREATININE 0.3 mg/dL (0.55-1.3)
[2024-01-05 07:51] LABS: PHOSPHOROUS 3.4 mg/dL (2.5-4.9)
[2024-01-05 07:52] LABS: BILIRUBIN,TOTAL 0.6 mg/dL (0.2-1); TOT PROT 5.5 g/dl (6.4-8.2)
[2024-01-05] MEDS: oxyCODONE HCL 5 MG TABLET PO PRN (10:27)
[2024-01-05] MEDS: POTASSIUM CHLORIDE IVPB SCH (16:07)
[2024-01-05] MEDS: [UNRECOGNIZED DRUG - OTHER] IVPB SCH (16:07)
[2024-01-05] MEDS: SODIUM CHLORIDE IVPB SCH (16:07)
[2024-01-06 08:34] LABS: POTASSIUM 3.5 mmol/L (3.5-5.1)
[2024-01-06 08:35] LABS: HEMATOCRIT 26.9 % (32.4-45.2); HEMOGLOBIN 8.9 GM/dL (10.7-15.3); MCH 28.9 pg (25.7-33.7); MCHC 33.1 g/dl (32.0-36.0); MEAN CELL VOLUME 87.4 fl (80-96); MEAN PLT VOLUME 10.2 fl (7.5-11.1); PLATELET COUNT 423 10^3/uL (134-434); RBC 3.08 M/mm3 (3.60-5.2); RDW 14.9 % (11.6-15.6); WHITE BLOOD COUNT 13.6 K/mm3 (4.0-10.0)
[2024-01-06 08:38] LABS: MAGNESIUM 1.9 mg/dL (1.8-2.4)
[2024-01-06 08:41] LABS: CREATININE 0.2 mg/dL (0.55-1.3)
[2024-01-06 08:43] LABS: TOT PROT 5.2 g/dl (6.4-8.2)
[2024-01-06 08:48] LABS: BLOOD UREA NITROGEN 11.3 mg/dL (7-18); PHOSPHOROUS 3.4 mg/dL (2.5-4.9)
[2024-01-06 08:49] LABS: ALBUMIN 1.6 g/dl (3.4-5.0); BILIRUBIN,TOTAL 0.4 mg/dL (0.2-1)
[2024-01-06 08:55] LABS: CALCIUM 8.4 mg/dL (8.5-10.1)
[2024-01-06] MEDS: POTASSIUM CHLORIDE TABS 20 MEQ TABLET.ER (FP) PO ONE (20:10)
[2024-01-06] MEDS: KCL 10 MEQ IVPB 10 MEQ/100 ML INFUS.BAG IVPB SCH (20:10)
[2024-01-07 08:09] LABS: BASO % 1.1 % (0-2.0); EOS % 5.7 % (0-4.5); HEMATOCRIT 29.5 % (32.4-45.2); HEMOGLOBIN 9.6 GM/dL (10.7-15.3); LYMPH % 11.5 % (8-40); MCH 28.5 pg (25.7-33.7); MCHC 32.5 g/dl (32.0-36.0); MEAN CELL VOLUME 87.5 fl (80-96); MEAN PLT VOLUME 10.4 fl (7.5-11.1); NEUT % 67.7 % (42.8-82.8); PLATELET COUNT 384 10^3/uL (134-434); RBC 3.37 M/mm3 (3.60-5.2); WHITE BLOOD COUNT 13.4 K/mm3 (4.0-10.0)
[2024-01-07 08:33] LABS: POTASSIUM 3.6 mmol/L (3.5-5.1)
[2024-01-07 08:46] LABS: CALCIUM 8.6 mg/dL (8.5-10.1)
[2024-01-07 08:47] LABS: ALBUMIN 1.8 g/dl (3.4-5.0); BLOOD UREA NITROGEN 9.2 mg/dL (7-18); MAGNESIUM 1.6 mg/dL (1.8-2.4)
[2024-01-07 08:48] LABS: BILIRUBIN,TOTAL 0.3 mg/dL (0.2-1); TOT PROT 5.7 g/dl (6.4-8.2)
[2024-01-07 08:50] LABS: CREATININE 0.2 mg/dL (0.55-1.3)
[2024-01-07] MEDS: TAMSULOSIN HCL 0.4 MG CAP PO ONE (13:22)
[2024-01-07] MEDS: VANCOMYCIN ORAL SOLUTION 125 MG/2.5 ML PO SCH (13:23)
[2024-01-07] MEDS: APIXABAN 5 MG TABLET PO SCH (21:43)
[2024-01-07] MEDS: ACETAMINOPHEN 325 MG TABLET (FP) PO PRN (22:05)
[2024-01-08 08:23] LABS: BASO % 0.9 % (0-2.0); EOS % 4.2 % (0-4.5); HEMATOCRIT 28.5 % (32.4-45.2); HEMOGLOBIN 9.6 GM/dL (10.7-15.3); LYMPH % 12.7 % (8-40); MCH 29.2 pg (25.7-33.7); MCHC 33.6 g/dl (32.0-36.0); MEAN CELL VOLUME 86.9 fl (80-96); MEAN PLT VOLUME 10.4 fl (7.5-11.1); MONO % 15.6 % (3.8-10.2); NEUT % 66.6 % (42.8-82.8); PLATELET COUNT 455 10^3/uL (134-434); RBC 3.28 M/mm3 (3.60-5.2); RDW 14.7 % (11.6-15.6); WHITE BLOOD COUNT 12.9 K/mm3 (4.0-10.0)
[2024-01-08 08:56] LABS: POTASSIUM 3.8 mmol/L (3.5-5.1)
[2024-01-08 09:01] LABS: CALCIUM 8.4 mg/dL (8.5-10.1)
[2024-01-08 09:02] LABS: ALBUMIN 1.8 g/dl (3.4-5.0); BLOOD UREA NITROGEN 8.6 mg/dL (7-18); MAGNESIUM 1.5 mg/dL (1.8-2.4)
[2024-01-08 09:05] LABS: CREATININE 0.4 mg/dL (0.55-1.3)
[2024-01-08 09:06] LABS: BILIRUBIN,TOTAL 0.4 mg/dL (0.2-1); TOT PROT 5.8 g/dl (6.4-8.2)
[2024-01-08] MEDS: TAMSULOSIN HCL 0.4 MG CAP PO SCH (09:28)
[2024-01-08] MEDS: FUROSEMIDE 40 MG TABLET (FP) PO SCH (10:26)
[2024-01-08] MEDS: PANTOPRAZOLE 40 MG TABLET PO SCH (10:27)
[2024-01-08] MEDS: MAGNESIUM SULF 50% (8.12 MEQ/2 ML-1 GM VIAL) IVPB ONE (10:46)
[2024-01-08] MEDS ORDERED: ONDANSETRON *ODT* 4 MG TABLET SL PRN (11:46)
[2024-01-08] MEDS ORDERED: METOCLOPRAMIDE HCL 10 MG TABLET (FP) PO PRN (11:47)
[2024-01-08] MEDS: AMINO ACIDS/PROTEIN HYDROLYS 30 ML LIQUID.PKT PO SCH (16:42)
[2024-01-08] MEDS: HYDROmorphone HCl 2 MG/ML VIAL IVPUSH ONE (16:50)
[2024-01-08] MEDS ORDERED: ACETAMINOPHEN 325 MG TABLET (FP) PO PRN (19:36)
[2024-01-08] MEDS ORDERED: oxyCODONE HCL 5 MG TABLET PO PRN ×2 (19:36)
[2024-01-08] MEDS: ONDANSETRON 4 MG/2 ML VIAL IVPUSH SCH (21:20)
[2024-01-08] MEDS: APIXABAN 5 MG TABLET PO SCH (22:20)
[2024-01-09] MEDS: VANCOMYCIN ORAL SOLUTION 125 MG/2.5 ML PO SCH ×2 (00:18→12:56)
[2024-01-09] MEDS: MEROPENEM-0.9% SODIUM CHLORIDE 1 GM/50 ML BAG IVPB SCH ×2 (01:20→17:25)
[2024-01-09] MEDS: VANCOMYCIN PREMIX 1.5 GM 1,500 MG/300 ML BAG IVPB SCH ×2 (05:23→18:00)
[2024-01-09] MEDS ORDERED: clonazePAM 0.25 MG ODT TABLETS SL PRN ×2 (08:37→11:40)
[2024-01-09] MEDS: TAMSULOSIN HCL 0.4 MG CAP PO SCH (08:40)
[2024-01-09] MEDS ORDERED: LIDOCAINE HCL/PF 2% SDV 5ML VIAL ONE (09:01)
[2024-01-09] MEDS ORDERED: DEXAMETHASONE SOD PHOSPHATE 4 MG/1 ML VIAL ONE (09:01)
[2024-01-09] MEDS ORDERED: ONDANSETRON 4 MG/2 ML VIAL ONE (09:01)
[2024-01-09] MEDS ORDERED: SUCCINYLCHOLINE CHLORIDE 200 MG/10 ML SYRINGE ONE (09:01)
[2024-01-09] MEDS ORDERED: ROCURONIUM BROMIDE 50 MG/5 ML SYRINGE ONE (09:01)
[2024-01-09] MEDS ORDERED: MIDAZOLAM HCL 2 MG/2 ML SINGLE DOSE VIAL ONE ×2 (09:02→09:42)
[2024-01-09] MEDS ORDERED: PROPOFOL 20 ML ONE (09:31)
[2024-01-09] MEDS: PANTOPRAZOLE 40 MG TABLET PO SCH (09:35)
[2024-01-09] MEDS: FUROSEMIDE 40 MG TABLET (FP) PO SCH (09:35)
[2024-01-09] MEDS ORDERED: BUPIVACAINE HCL/PF 0.5% (5MG/ML) 10 ML VIAL ONE (09:36)
[2024-01-09] MEDS: MEROPENEM 1 GM VIAL (RESTRICTED TO ID) IVPB ONE (09:37)
[2024-01-09] MEDS: THYROID 30 MG TABLET PO SCH (09:42)
[2024-01-09] MEDS: BUPIVACAINE HCL/PF 0.5% (5 MG/ML) 30 ML VIAL IJ ONE (09:45)
[2024-01-09] MEDS ORDERED: ONDANSETRON *ODT* 4 MG TABLET SL PRN (11:40)
[2024-01-09] MEDS ORDERED: METOCLOPRAMIDE HCL 10 MG TABLET (FP) PO PRN (11:40)
[2024-01-09] MEDS ORDERED: ACETAMINOPHEN 325 MG TABLET (FP) PO PRN (11:40)
[2024-01-09] MEDS: THYROID 15 MG TABLET PO SCH (12:00)
[2024-01-09] MEDS: ONDANSETRON 4 MG/2 ML VIAL IVPUSH SCH (12:56)
[2024-01-09] MEDS: LACTATED RINGERS SOLUTION 1,000 ML IV SCH (12:57)
[2024-01-09 13:34] LABS: BASO % 0.9 % (0-2.0); HEMATOCRIT 28.9 % (32.4-45.2); HEMOGLOBIN 9.6 GM/dL (10.7-15.3); LYMPH % 13.1 % (8-40); MCH 28.8 pg (25.7-33.7); MCHC 33.2 g/dl (32.0-36.0); MEAN CELL VOLUME 86.8 fl (80-96); MEAN PLT VOLUME 8.8 fl (7.5-11.1); MONO % 14.6 % (3.8-10.2); NEUT % 68.4 % (42.8-82.8); PLATELET COUNT 478 10^3/uL (134-434); RBC 3.33 M/mm3 (3.60-5.2); RDW 14.7 % (11.6-15.6); WHITE BLOOD COUNT 11.2 K/mm3 (4.0-10.0)
[2024-01-09] MEDS: oxyCODONE HCL 5 MG TABLET PO PRN (13:54)
[2024-01-09 14:25] LABS: POTASSIUM 3.4 mmol/L (3.5-5.1)
[2024-01-09 14:27] LABS: ALBUMIN 1.9 g/dl (3.4-5.0)
[2024-01-09 14:28] LABS: CALCIUM 8.7 mg/dL (8.5-10.1)
[2024-01-09 14:29] LABS: BLOOD UREA NITROGEN 6.6 mg/dL (7-18)
[2024-01-09 14:32] LABS: BILIRUBIN,TOTAL 0.4 mg/dL (0.2-1); CREATININE 0.4 mg/dL (0.55-1.3); TOT PROT 6.1 g/dl (6.4-8.2)
[2024-01-09] MEDS: AMINO ACIDS/PROTEIN HYDROLYS 30 ML LIQUID.PKT PO SCH (17:05)
[2024-01-09] MEDS: POTASSIUM CHLORIDE ORAL LIQUID 20 MEQ/15 ML PO ONE (19:31)
[2024-01-09] MEDS: POTASSIUM CHLORIDE TABS 10 MEQ TABLET.ER (FP) PO SCH (20:16)
[2024-01-09] MEDS: traZODone HCL 100 MG TABLET (FP) PO SCH (21:26)
[2024-01-09] MEDS: APIXABAN 5 MG TABLET PO SCH (21:26)
[2024-01-09] MEDS ORDERED: traZODone HCL 100 MG TABLET (FP) PO SCH (22:00)
[2024-01-10] MEDS: THYROID 15 MG TABLET PO SCH (06:02)
[2024-01-10 08:27] LABS: POTASSIUM 3.5 mmol/L (3.5-5.1)
[2024-01-10 08:30] LABS: ALBUMIN 1.7 g/dl (3.4-5.0); BLOOD UREA NITROGEN 4.8 mg/dL (7-18); CALCIUM 8.4 mg/dL (8.5-10.1); MAGNESIUM 1.9 mg/dL (1.8-2.4)
[2024-01-10 08:34] LABS: CREATININE 0.3 mg/dL (0.55-1.3)
[2024-01-10 08:35] LABS: BILIRUBIN,TOTAL 0.4 mg/dL (0.2-1); TOT PROT 5.2 g/dl (6.4-8.2)
[2024-01-10 08:45] LABS: HEMATOCRIT 24.6 % (32.4-45.2); HEMOGLOBIN 8.4 GM/dL (10.7-15.3); MCH 29.6 pg (25.7-33.7); MCHC 34.4 g/dl (32.0-36.0); MEAN PLT VOLUME 9.7 fl (7.5-11.1); PLATELET COUNT 464 10^3/uL (134-434); RBC 2.86 M/mm3 (3.60-5.2); RDW 15.1 % (11.6-15.6); WHITE BLOOD COUNT 9.5 K/mm3 (4.0-10.0)
[2024-01-10] MEDS: TAMSULOSIN HCL 0.4 MG CAP PO SCH (10:40)
[2024-01-10] MEDS: PANTOPRAZOLE 40 MG TABLET PO SCH (10:40)
[2024-01-10] MEDS: FUROSEMIDE 40 MG TABLET (FP) PO SCH (10:41)
[2024-01-10] MEDS: oxyCODONE HCL 5 MG TABLET PO PRN (10:59)
[2024-01-10] MEDS: POTASSIUM CHLORIDE ORAL LIQUID 20 MEQ/15 ML PO ONE (14:37)
[2024-01-11 08:56] LABS: POTASSIUM 3.5 mmol/L (3.5-5.1)
[2024-01-11 09:02] LABS: BLOOD UREA NITROGEN 4.7 mg/dL (7-18); CALCIUM 8.8 mg/dL (8.5-10.1)
[2024-01-11 09:03] LABS: MAGNESIUM 1.9 mg/dL (1.8-2.4)
[2024-01-11 09:07] LABS: CREATININE 0.4 mg/dL (0.55-1.3); PHOSPHOROUS 4.1 mg/dL (2.5-4.9)
[2024-01-11 09:08] LABS: BILIRUBIN,TOTAL 0.6 mg/dL (0.2-1); TOT PROT 5.9 g/dl (6.4-8.2)
[2024-01-12] MEDS ORDERED: BUPIVACAINE HCL/PF 0.25% (2.5MG/ML) 10 ML VIAL ONE (12:51)
[2024-01-12] MEDS ORDERED: ONDANSETRON 4 MG/2 ML VIAL IVPUSH PRN ×2 (14:04→16:41)
[2024-01-12] MEDS ORDERED: PROPOFOL 20 ML ONE (14:13)
[2024-01-12] MEDS ORDERED: MIDAZOLAM HCL 2 MG/2 ML SINGLE DOSE VIAL ONE (14:14)
[2024-01-12] MEDS ORDERED: SODIUM CHLORIDE 1,000 ML IV SCH (14:15)
[2024-01-12] MEDS ORDERED: LIDOCAINE HCL/PF 2% SDV 5ML VIAL ONE (14:38)
[2024-01-12] MEDS ORDERED: ONDANSETRON 4 MG/2 ML VIAL ONE (14:38)
[2024-01-12] MEDS ORDERED: DEXAMETHASONE SOD PHOSPHATE 4 MG/1 ML VIAL ONE (14:38)
[2024-01-12] MEDS ORDERED: SEVOFLURANE 250 ML BTL ONE (14:47)
[2024-01-12] MEDS: BUPIVACAINE HCL/PF 0.25% (2.5MG/ML) 10 ML VIAL IJ ONE (14:55)
[2024-01-12] MEDS ORDERED: METOCLOPRAMIDE HCL 10 MG TABLET (FP) PO PRN (16:41)
[2024-01-12] MEDS: SODIUM CHLORIDE 1,000 ML IV SCH (17:10)
[2024-01-12] MEDS: AMINO ACIDS/PROTEIN HYDROLYS 30 ML LIQUID.PKT PO SCH (18:08)
[2024-01-12] MEDS: VANCOMYCIN ORAL SOLUTION 125 MG/2.5 ML PO SCH (18:09)
[2024-01-12] MEDS: oxyCODONE HCL 5 MG TABLET PO PRN (19:36)
[2024-01-12] MEDS: ONDANSETRON 4 MG/2 ML VIAL IVPUSH SCH (21:33)
[2024-01-12] MEDS: traZODone HCL 100 MG TABLET (FP) PO SCH (21:33)
[2024-01-12] MEDS: APIXABAN 5 MG TABLET PO SCH (21:34)
[2024-01-13] MEDS: oxyCODONE HCL 5 MG TABLET PO PRN (04:19)
[2024-01-13] MEDS: THYROID 15 MG TABLET PO SCH (06:28)
[2024-01-13] MEDS: TAMSULOSIN HCL 0.4 MG CAP PO SCH (08:59)
[2024-01-13 09:16] LABS: BASO % 1.3 % (0-2.0); EOS % 0.3 % (0-4.5); HEMATOCRIT 27.1 % (32.4-45.2); HEMOGLOBIN 9.1 GM/dL (10.7-15.3); LYMPH % 21.1 % (8-40); MCH 28.8 pg (25.7-33.7); MCHC 33.4 g/dl (32.0-36.0); MEAN CELL VOLUME 86.3 fl (80-96); MEAN PLT VOLUME 8.7 fl (7.5-11.1); NEUT % 63.3 % (42.8-82.8); PLATELET COUNT 541 10^3/uL (134-434); RBC 3.14 M/mm3 (3.60-5.2); RDW 14.9 % (11.6-15.6); WHITE BLOOD COUNT 5.8 K/mm3 (4.0-10.0)
[2024-01-13 09:24] LABS: POTASSIUM 3.7 mmol/L (3.5-5.1)
[2024-01-13 09:28] LABS: BLOOD UREA NITROGEN 8.5 mg/dL (7-18)
[2024-01-13 09:29] LABS: CALCIUM 8.7 mg/dL (8.5-10.1)
[2024-01-13 09:33] LABS: CREATININE 0.5 mg/dL (0.55-1.3)
[2024-01-13] MEDS: PANTOPRAZOLE 40 MG TABLET PO SCH (09:52)
[2024-01-13] MEDS ORDERED: morphine SULFATE 4 MG/ML VIAL ONE (13:53)
[2024-01-13] MEDS: morphine SULFATE 4 MG/ML VIAL IVPUSH ONE (14:05)
[2024-01-14 23:27] VITALS: RESP 18
[2024-01-15] MEDS: ONDANSETRON *ODT* 4 MG TABLET SL PRN (06:37)
[2024-01-15 17:14] LABS: PH,URINE 6.5 (5.0-8.0); URINE APPEARANCE CLOUDY; URINE BILIRUBIN NEGATIVE (NEGATIVE); URINE COLOR YELLOW; URINE GLUCOSE (UA) NEGATIVE (NEGATIVE); URINE KETONE NEGATIVE (NEGATIVE); URINE LEUK ESTERASE NEGATIVE (NEGATIVE); URINE NITRITE NEGATIVE (NEGATIVE); URINE PROTEIN NEGATIVE (NEGATIVE); URINE UROBILINOGEN 0.2 mg/dL (0.2-1.0)
[2024-01-15] MEDS: ACETAMINOPHEN 325 MG TABLET (FP) PO PRN (20:39)
[2024-01-15] MEDS ORDERED: MELATONIN 5 MG TABLETS PO PRN (22:21)
[2024-01-15] MEDS: oxyCODONE HCL 5 MG TABLET PO PRN (23:09)
[2024-01-16 06:34] VITALS: PULSE 76; TEMP 98.4
[2024-01-16 14:53] VITALS: BP 126/67
== END 2024-01-16 18:25 | disposition home health service (06) | DRG 221 ==
LOC: JER 15:02 → JERBED 23:19 → JICU 12-29 13:16 → J8W 01-08 19:15
PROVIDERS: ADMIT Internal Medicine; ATTEND Family Medicine
PROC: 0DQA0ZZ Repair Jejunum, Open Approach (ICD-10-PCS; 2023-12-29)
PROC: 0WQF0ZZ Repair Abdominal Wall, Open Approach (ICD-10-PCS; 2023-12-29)
PROC: 0T788DZ Dilation of Bilateral Ureters with Intraluminal Device, Via Natural or Artificial Opening Endoscopic (ICD-10-PCS; 2023-12-29)
PROC: 0T9B80Z Drainage of Bladder with Drainage Device, Via Natural or Artificial Opening Endoscopic (ICD-10-PCS; 2023-12-29)
PROC: 0DTM0ZZ Resection of Descending Colon, Open Approach (ICD-10-PCS; principal; 2023-12-29 04:32)
PROC: 0D1E0Z4 Bypass Large Intestine to Cutaneous, Open Approach (ICD-10-PCS; 2023-12-29 04:32)
PROC: 30233N1 Transfusion of Nonautologous Red Blood Cells into Peripheral Vein, Percutaneous Approach (ICD-10-PCS; 2023-12-31)
PROC: 0WQF0ZZ Repair Abdominal Wall, Open Approach (ICD-10-PCS; 2024-01-09)
PROC: 3E1M38Z Irrigation of Peritoneal Cavity using Irrigating Substance, Percutaneous Approach (ICD-10-PCS; 2024-01-09)
PROC: 2W13X6Z Compression of Abdominal Wall using Pressure Dressing (ICD-10-PCS; 2024-01-09)
PROC: 2W13X6Z Compression of Abdominal Wall using Pressure Dressing (ICD-10-PCS; 2024-01-12)
DX: K55.9 Vascular disorder of intestine, unspecified (principal); J18.9 Pneumonia, unspecified organism; E03.9 Hypothyroidism, unspecified; E87.6 Hypokalemia; F31.9 Bipolar disorder, unspecified; R11.2 Nausea with vomiting, unspecified; E66.01 Morbid (severe) obesity due to excess calories; Z68.41 Body mass index [BMI] 40.0-44.9, adult; A04.72 Enterocolitis due to Clostridium difficile, not specified as recurrent; J81.0 Acute pulmonary edema; M54.9 Dorsalgia, unspecified; R50.82 Postprocedural fever; E87.70 Fluid overload, unspecified; K63.1 Perforation of intestine (nontraumatic); M79.7 Fibromyalgia; I82.442 Acute embolism and thrombosis of left tibial vein; F17.210 Nicotine dependence, cigarettes, uncomplicated; G89.29 Other chronic pain; J95.821 Acute postprocedural respiratory failure; D72.829 Elevated white blood cell count, unspecified; F41.8 Other specified anxiety disorders; K21.9 Gastro-esophageal reflux disease without esophagitis; M54.50 Low back pain, unspecified; Z98.84 Bariatric surgery status
CPT/HCPCS: 36415; 36430; 36600; 71045-TC-FY; 74018-TC-FY; 74177-TC; 80048; 80053; 80061; 81003; 82570; 82575; 82803; 82962; 83605; 83735; 84100; 84300; 84439; 84443; 84484; 84630; 85025; 85027; 85610; 85730; 86140; 86803; 86850; 86900; 86901; 86922; 87040; 87070; 87086; 87186; 87205; 87324; 87389; 87449; 87481; 87493; 88305-TC; 88307-TC; 93005; 93010; 93970-TC; 93971-TC; 94002; 94660; 94760; 97116-GP; 97161-GP; 99285-25; G0480; J0131; J1644; P9058; Q0162; Q9967